=== PATIENT | female | born 1970 | race Caucasian/White ===

== ENCOUNTER 2020-06-30 10:39 | Outpatient (REF) | payer OTHER, SELFPAY ==
--- NOTE | ~2020-06-30 | MM_ITS ---
EXAMINATION: MM SCREENING DIGITAL BREAST TOMOSYNTHESIS, BILATERAL CLINICAL INFORMATION: Screening. Asymptomatic. The lifetime risk of breast cancer based on the Tyrer-Cuzick Model is 6%. COMPARISON: Mammography: 04/18/2019, 04/12/2018, 06/30/2016 TECHNIQUE: Digital breast tomosynthesis is performed in both the craniocaudal and mediolateral oblique views along with computer-aided detection (CAD). Synthesized 2D images are generated from the tomosynthesis. Additional left MLO view is provided. FINDINGS: The breasts are heterogeneously dense, which may obscure small masses (ACR BI-RADS breast composition Category c). There is a fibrocystic parenchymal pattern with scattered bilateral oval and round waxing and waning masses. There is no interval significant mass or architectural abnormality. No abnormal calcifications. The skin contours are smooth. MM/MM tomosynthesis screening BI IMPRESSION: No significant changes from prior exams. ASSESSMENT: BI-RADS 2: Benign RECOMMENDATION: Routine annual mammography screening. This patient's information was entered into a reminder system with a target due date for their next mammogram.
== END 2020-06-30 10:40 | disposition home or self-care (01) ==
LOC: HO.MAMMO 10:39
PROVIDERS: Visit Provider Internal Medicine
DX: Z12.31 Encounter for screening mammogram for malignant neoplasm of breast (principal)
CPT/HCPCS: 77063; 77067

== ENCOUNTER 2020-09-26 17:32 | Emergency (ER) | payer OTHER, SELFPAY ==
--- NOTE | 2020-09-26 | ECG_ITS ---
Test Reason : CHEST PAIN Blood Pressure : / mmHG Vent. Rate : 078 BPM Atrial Rate : 078 BPM P-R Int : 178 ms QRS Dur : 078 ms QT Int : 364 ms P-R-T Axes : 052 001 -01 degrees QTc Int : 414 ms Normal sinus rhythm Normal ECG When compared to the previous EKG of No significant changes seen Referred By: Generic ED Physician Electronically Signed By:Ren De La Cruz
--- NOTE | ~2020-09-26 | XR_ITS ---
EXAMINATION: XR CHEST CLINICAL INFORMATION: Chest pain COMPARISON: 06/16/2018 TECHNIQUE: Frontal view of the chest was obtained. FINDINGS: No significant abnormality is noted involving the heart, lungs, mediastinum, bony thorax or soft tissues. XR/XR chest 1V IMPRESSION: Unremarkable examination.
[2020-09-26 17:42] VITALS: BP 154/85; PULSE 85; RESP 18; TEMP 36.2; O2SAT 97; BMI 35.6
[2020-09-26 18:00] VITALS: BP 141/90; PULSE 75; RESP 16; TEMP 36.8; O2SAT 96
--- NOTE | 2020-09-26 18:30 | ED.CHESTPAIN ---
HPI - Chest Pain General Chief Complaint: Chest Pain Stated Complaint: Chest Pain Time Seen by Provider: 09/26/20 18:28 Source: patient Mode of arrival: ambulatory Limitations: no limitations History of Present Illness HPI narrative: 50-year-old female came in for evaluation of chest pain. Patient recently had dental infection that require dental extraction 2 days ago and being on amoxicillin, patient thinks the infection spread to her neck and down to her chest, because she feels intermittent right-sided chest and neck pain with palpitation, pain started 2 days ago, has a dull aching pain, no aggravating or relieving factors, no recent travel, no lower extremity swelling or tenderness. Patient declined any shortness of breath. Related Data Allergies Allergy/AdvReac Type Severity Reaction Status Date / Time No Known Allergies Allergy Unverified 12/01/19 14:52 Review of Systems Review of Systems: All other systems are reviewed and are negative Constitutional: Reports as per HPI and Reports no additional constitutional complaints Eyes: Reports as per HPI and Reports no additional eye complaints Reports system reviewed and no additional complaints, except as documented Cardiovascular: Reports as per HPI and Reports no additional cardiovascular complaints Respiratory: Reports as per HPI and Reports no additional respiratory complaints Gastrointestinal: Reports as per HPI and Reports no additional gastrointestinal complaints Genitourinary: Reports no additional female genitourinary complaints Musculoskeletal: Reports no additional musculoskeletal complaints Skin/Breast: Reports system reviewed and no additional complaints, except as docu Psychiatric: Reports no additional psychiatric complaints Endocrine: Reports no additional endocrine complaints Hematologic/Lymphatic: Reports no additional hematologic/lymphatic complaints Allergic/Immunologic: Reports no additional allergic/immunologic complaints Reports system reviewed and no additional complaints, except as documented and Reports Abnormal speech present [facility] Past Medical History Medical History Chronic GERD High cholesterol Surgical History H/O tooth extraction H/O: hysterectomy History of back surgery History of cholecystectomy Social History Social History Advance Directives: No Advance Directives Information Provided: Yes Patient : No (Hysterectomy) Physical Exam Vital Signs: Vital Signs: Last Vital Signs Temp 98.2 F 09/26/20 18:00 Pulse 75 09/26/20 18:00 Resp 16 09/26/20 18:00 BP 141/90 H 09/26/20 18:00 Pulse Ox 96 09/26/20 18:00 Body Mass Index 35.6 Vital signs have been reviewed as appeared to be correct. Blood pressure normal. Heart rate normal. Respiration rate normal. Temperature normal. Oxygen saturation normal. Appearance: Alert. Oriented X3. No acute distress. Head: Normal external exam. Normocephalic. Atraumatic. No Bernardo signs noted. No raccoon eyes noted. Mouth exam: Widespread daily, recently extracted left lower 2nd molar tooth, gum not tender with no fluctuation. Eyes: PERRLA. EOMI. Conjunctiva and sclera normal. Eyelids normal. ENT: TM's Normal. Pharynx normal. Uvula midline. Moist mucous membranes. No trismus noted. No drooling noted. No muffled voice noted. Neck: Normal inspection. Neck supple. FROM. No adenopathy. Thyroid Normal. No meningeal signs. No neck mass noted. CVS: Normal heart rate and rhythm. Heart sound normal. No murmurs noted. Pulses normal throughout. Respiratory: No respiratory distress. Painless inspiration. Breath sounds normal. No wheezes/rales/rhonchi noted. Chest nontender. No accessory muscle usage noted or decreased air movement noted. Abdomen: Soft and nontender. Bowel sounds normal in all 4 quadrants. No distention noted. No organomegaly noted. No visible injury noted. Back: No CVA tenderness. Full range of motion noted. Skin: Skin warm and dry. Normal skin color. Normal skin turgor. No rashes/lesions/lacerations noted. Extremities: No lower extremity edema. Extremities exhibit normal range of motion. Extremities nontender. Neuro: Oriented X 3. No motor deficit. No sensory deficit. Reflexes normal. Course Course Course Narrative: Assessment and plan. [age] year female came in with chest pain concern of spreading infection from her to tooth, patient has unremarkable EKG, troponin, labs. MDM - Chest Pain Lab Data Attestation: I reviewed the patient's lab results. Result diagrams: 09/26/20 18:43 09/26/20 18:43 Labs: Lab Results 09/26/20 09/26/20 09/26/20 Range/Units 18:43 18:43 18:43 WBC 8.3 (4.8-10.8) X10*3/uL RBC 4.92 (4.20-5.50) X10*6/uL Hgb 14.0 (12.0-16.0) g/dl Hct 42.5 (37-47) % MCV 86.4 (80-98) fL MCH 28.5 (27.0-33.0) pg MCHC 32.9 (31.0-35.0) g/dl RDW 12.9 (11.0-16.0) % Plt Count 303 (160-400) X10*3/uL MPV 10.0 (9.4-12.3) fL Immature Gran % (Auto) 0.2 (0.0-0.4) % Neut % (Auto) 62.5 (45-73) % Lymph % (Auto) 28.0 (20-40) % [place] % (Auto) 7.0 (2-11) % Eos % (Auto) 1.9 (0-4) % Baso % (Auto) 0.4 (0-2) % Lymph # (Auto) 2.3 (1.2-4.9) X10*3/uL [place] # (Auto) 0.6 (0.1-1.2) X10*3/uL Eos # (Auto) 0.2 (0.0-0.4) X10*3/uL Baso # (Auto) 0.0 (0.0-0.2) X10*3/uL Abs Immat Gran (auto) 0.02 (0.00-0.03) X10*3/uL Absolute Neuts (auto) 5.2 (2.0-8.3) X10*3/uL Absolute Nucleated RBC 0.000 (0.0-0.012) X10*3/uL Nucleated RBC % (auto) 0.0 (0.0-0.2) /100WBC Sodium 142 (135-145) mmol/L Potassium 3.9 (3.3-5.1) mmol/L Chloride 106 (96-108) mmol/L Carbon Dioxide 24 (22-29) mmol/L Anion Gap 16 (12-20) BUN 9 (9-16) mg/dL Creatinine 0.70 (0.5-1.4) mg/dL Estim Creat Clear Calc 97.1 Estimated GFR > 60 Random Glucose 95 (60-115) mg/dL Calcium 9.9 (8.4-10.2) mg/dL Total Bilirubin 0.4 (0.0-1.0) mg/dL Direct Bilirubin 0.2 (0.0-0.5) mg/dL AST 21 (5-31) U/L ALT 27 (0-31) U/L Alkaline Phosphatase 71 (39-117) U/L Troponin I High Sens < 3.5 (<3.5-17.0) ng/L B-Natriuretic Peptide 22 (<100) pg/mL Total Protein 7.4 (6.5-8.0) g/dL Albumin 4.4 (3.5-5.0) g/dL Lipase 9 (8-78) U/L Urine Color Urine Appearance Urine pH (5.0-8.0) Ur Specific [place] (1.005-1.025) Urine Protein (NEG-TRACE) MG/DL Urine Glucose (UA) (NEG) MG/DL Urine Ketones (NEG) MG/DL Urine Blood (NEG) Urine Nitrite (NEG) Ur Leukocyte Esterase (NEG) Urine RBC (0) /HPF Urine WBC (0-4) /HPF Ur Squamous Epith Cells /LPF Urine Bacteria /LPF Urine Test (NEGATIVE) 09/26/20 09/26/20 Range/Units 18:43 18:43 WBC (4.8-10.8) X10*3/uL RBC (4.20-5.50) X10*6/uL Hgb (12.0-16.0) g/dl Hct (37-47) % MCV (80-98) fL MCH (27.0-33.0) pg MCHC (31.0-35.0) g/dl RDW (11.0-16.0) % Plt Count (160-400) X10*3/uL MPV (9.4-12.3) fL Immature Gran % (Auto) (0.0-0.4) % Neut % (Auto) (45-73) % Lymph % (Auto) (20-40) % [place] % (Auto) (2-11) % Eos % (Auto) (0-4) % Baso % (Auto) (0-2) % Lymph # (Auto) (1.2-4.9) X10*3/uL [place] # (Auto) (0.1-1.2) X10*3/uL Eos # (Auto) (0.0-0.4) X10*3/uL Baso # (Auto) (0.0-0.2) X10*3/uL Abs Immat Gran (auto) (0.00-0.03) X10*3/uL Absolute Neuts (auto) (2.0-8.3) X10*3/uL Absolute Nucleated RBC (0.0-0.012) X10*3/uL Nucleated RBC % (auto) (0.0-0.2) /100WBC Sodium (135-145) mmol/L Potassium (3.3-5.1) mmol/L Chloride (96-108) mmol/L Carbon Dioxide (22-29) mmol/L Anion Gap (12-20) BUN (9-16) mg/dL Creatinine (0.5-1.4) mg/dL Estim Creat Clear Calc Estimated GFR Random Glucose (60-115) mg/dL Calcium (8.4-10.2) mg/dL Total Bilirubin (0.0-1.0) mg/dL Direct Bilirubin (0.0-0.5) mg/dL AST (5-31) U/L ALT (0-31) U/L Alkaline Phosphatase (39-117) U/L Troponin I High Sens (<3.5-17.0) ng/L B-Natriuretic Peptide (<100) pg/mL Total Protein (6.5-8.0) g/dL Albumin (3.5-5.0) g/dL Lipase (8-78) U/L Urine Color YELLOW Urine Appearance CLEAR Urine pH 6.0 (5.0-8.0) Ur Specific [place] 1.025 (1.005-1.025) Urine Protein NEG (NEG-TRACE) MG/DL Urine Glucose (UA) NEG (NEG) MG/DL Urine Ketones NEG (NEG) MG/DL Urine Blood 1+ H (NEG) Urine Nitrite NEG (NEG) Ur Leukocyte Esterase NEG (NEG) Urine RBC 0-2 (0) /HPF Urine WBC 0 (0-4) /HPF Ur Squamous Epith Cells 1+ /LPF Urine Bacteria 1+ /LPF Urine Test NEGATIVE (NEGATIVE) Imaging Data Chest x-ray: Radiologist's impression: Unremarkable chest x-ray. ECG Data ECG #1: Interpretation: Normal sinus rhythm at 78 beats per minutes, normal intervals, nonspecific ST-T changes. Discharge Plan Discharge Clinical Impression: Chest pain Qualifiers: Chest pain type: unspecified Qualified Code(s): R07.9 - Chest pain, unspecified Patient Disposition: Home, Self-Care Instructions: Chest Pain (ED) Referrals: Jakob Solomon MD [Primary Care Provider] - 2 days
[2020-09-26 18:49] LABS: MANUAL DIFF FLAG NO
[2020-09-26 18:50] LABS: Basophils Percent Auto 0.4 % (0-2); Eosinophils Absolute Auto 0.2 X10*3/uL (0.0-0.4); Eosinophils Percent Auto 1.9 % (0-4); Hematocrit 42.5 % (37-47); Imm Gran Abs Auto 0.02 X10*3/uL (0.00-0.03); Imm Gran Pct Auto 0.2 % (0.0-0.4); Lymphocytes Absolute Auto 2.3 X10*3/uL (1.2-4.9); Mean Corpuscular HGB Conc 32.9 g/dl (31.0-35.0); Mean Corpuscular Hemoglobin 28.5 pg (27.0-33.0); Mean Corpuscular Volume 86.4 fL (80-98); Monocytes Absolute Auto 0.6 X10*3/uL (0.1-1.2); Neutrophils Absolute Auto 5.2 X10*3/uL (2.0-8.3); Neutrophils Percent Auto 62.5 % (45-73); Platelet Count 303 X10*3/uL (160-400); Red Blood Count 4.92 X10*6/uL (4.20-5.50); Red Cell Distribution Width 12.9 % (11.0-16.0); White Blood Count 8.3 X10*3/uL (4.8-10.8)
[2020-09-26 18:56] LABS: Glucose Urine UA NEG (NEG); Leukocyte Esterase Urine NEG (NEG); Nitrite Urine NEG (NEG); Specific Gravity - Urine 1.025 (1.005-1.025); Urine Blood 1+ (NEG); Urine Ketones NEG (NEG); Urine Protein NEG (NEG-TRACE)
[2020-09-26 18:57] LABS: Appearance Urine CLEAR; Color Urine YELLOW
[2020-09-26 18:58] LABS: UPreg QC Valid YES; Urine Pregnancy NEGATIVE (NEGATIVE)
[2020-09-26 19:06] LABS: Bacteria Urine 1+ /LPF; RBC Urine 0-2 /HPF (0); Squamous Epithelial Cell Urine 1+ /LPF; WBC Urine 0 /HPF (0-4)
[2020-09-26 19:12] LABS: Alanine Aminotransferase 27 U/L (0-31); Albumin Level 4.4 g/dL (3.5-5.0); Alkaline Phosphatase 71 U/L (39-117); Anion Gap 16 (12-20); Aspartate Amino Transferase 21 U/L (5-31); Bilirubin Direct 0.2 mg/dL (0.0-0.5); Bilirubin Total 0.4 mg/dL (0.0-1.0); Blood Urea Nitrogen 9 mg/dL (9-16); Calcium 9.9 mg/dL (8.4-10.2); Carbon Dioxide 24 mmol/L (22-29); Chloride 106 mmol/L (96-108); Creatinine Clr Calc Pharmacy 97.1; Estimated Glomerular Filt Rate > 60; Glucose Random 95 mg/dL (60-115); Lipase 9 U/L (8-78); Potassium 3.9 mmol/L (3.3-5.1); Sodium 142 mmol/L (135-145); Total Protein 7.4 g/dL (6.5-8.0)
[2020-09-26 19:16] LABS: B Type Natriuretic Peptide 22 pg/mL (<100); Troponin-I High Sensitivity < 3.5 ng/L (<3.5-17.0)
[2020-09-26 19:30] VITALS: BP 136/82; PULSE 80; RESP 16; TEMP 36.8; O2SAT 98
== END 2020-09-26 20:06 | disposition home or self-care (01) ==
PROVIDERS: Emergency Provider Emergency Medicine; PCP Internal Medicine
DX: R07.9 Chest pain, unspecified (principal); M54.2 Cervicalgia; R06.02 Shortness of breath; Z79.899 Other long term (current) drug therapy
CPT/HCPCS: 36415; 71045; 80048; 80076; 81001; 81025; 83690; 83880; 84484; 85025; 93005; 99284

== ENCOUNTER 2022-04-30 11:19 | Outpatient (REF) | payer OTHER, SELFPAY ==
--- NOTE | ~2022-04-30 | MM_ITS ---
EXAMINATION: MM SCREENING DIGITAL BREAST TOMOSYNTHESIS, BILATERAL CLINICAL INFORMATION: Screening. Asymptomatic. The lifetime risk of breast cancer based on the Tyrer-Cuzick Model is 6%. COMPARISON: Mammography: 06/30/2020, 04/18/2019, 04/12/2018 TECHNIQUE: Digital breast tomosynthesis is performed in both the craniocaudal and mediolateral oblique views along with computer-aided detection (CAD). Synthesized 2D images are generated from the tomosynthesis. FINDINGS: The breasts are heterogeneously dense, which may obscure small masses (ACR BI-RADS breast composition Category c). Fibrocystic parenchymal pattern is again noted with scattered smooth nodularity overall decreased from prior studies. No developing density or architectural abnormality. There are no significant masses, abnormal calcifications, or other abnormalities. The axilla and skin contours are unremarkable. No significant changes. MM/MM tomosynthesis screening BI IMPRESSION: No mammographic evidence of malignancy. ASSESSMENT: BI-RADS 2: Benign RECOMMENDATION: Routine annual mammography screening. This patient's information was entered into a reminder system with a target due date for their next mammogram.
== END 2022-04-30 11:20 | disposition home or self-care (01) ==
LOC: HO.MAMMO 11:19
PROVIDERS: PCP Internal Medicine; Visit Provider Internal Medicine
DX: Z12.31 Encounter for screening mammogram for malignant neoplasm of breast (principal)
CPT/HCPCS: 77063; 77067

== ENCOUNTER 2022-07-10 15:27 | Outpatient (REF) | payer OTHER, SELFPAY ==
[2022-07-10 15:47] LABS: MANUAL DIFF FLAG NO
[2022-07-10 17:27] LABS: Basophils Absolute Auto 0.1 X10*3/uL (0.0-0.2); Basophils Percent Auto 0.7 % (0-2); Eosinophils Absolute Auto 0.5 X10*3/uL (0.0-0.4); Eosinophils Percent Auto 4.9 % (0-4); Hematocrit 43.3 % (37.0-47.0); Imm Gran Abs Auto 0.05 X10*3/uL (0.00-0.03); Imm Gran Pct Auto 0.5 % (0.0-0.4); Lymphocytes Absolute Auto 2.9 X10*3/uL (1.2-4.9); Mean Corpuscular HGB Conc 32.3 g/dl (31.0-35.0); Mean Corpuscular Volume 86.6 fL (80.0-98.0); Mean Platelet Volume 10.8 fL (9.4-12.3); Monocytes Absolute Auto 0.7 X10*3/uL (0.1-1.2); Monocytes Percent Auto 7.6 % (2-11); Neutrophils Absolute Auto 5.4 x10*3/uL (2.0-8.3); Neutrophils Percent Auto 56.3 % (45-73); Platelet Count 335 X10*3/uL (160-400); Red Cell Distribution Width 13.7 % (11.0-16.0); White Blood Count 9.6 X10*3/uL (4.8-10.8)
[2022-07-10 17:49] LABS: Alanine Aminotransferase 36 U/L (0-31); Albumin Level 4.3 g/dL (3.5-5.0); Alkaline Phosphatase 86 U/L (39-117); Anion Gap 16 (12-20); Aspartate Amino Transferase 26 U/L (5-31); Bilirubin Total 0.4 mg/dL (0.0-1.0); Blood Urea Nitrogen 10 mg/dL (9-16); Calcium 9.7 mg/dL (8.4-10.2); Carbon Dioxide 26 mmol/L (22-29); Chloride 105 mmol/L (96-108); Estimated Glomerular Filt Rate > 60; Glucose Random 93 mg/dL (60-115); Potassium 4.5 mmol/L (3.3-5.1); Sodium 142 mmol/L (135-145)
[2022-07-12 02:14] LABS: Lyme Abs Screen <0.90 index
== END 2022-07-10 15:28 | disposition home or self-care (01) ==
LOC: HO.LAB 15:27
PROVIDERS: PCP Internal Medicine; Visit Provider Internal Medicine
DX: L03.90 Cellulitis, unspecified (principal); R21 Rash and other nonspecific skin eruption
CPT/HCPCS: 36415; 80053; 85025; 86617; 86618; 87070; 87205

== ENCOUNTER 2022-11-24 08:18 | Day surgery (SDC) | payer OTHER, SELFPAY ==
[2022-11-24 09:00] VITALS: BMI 34.7
--- NOTE | 2022-11-24 09:04 | HO.ANESPROP2 ---
[facility] Past Medical History Medical History High cholesterol Chronic GERD Surgical History Surgical History Tubal ligation status H/O endoscopy H/O colonoscopy History of back surgery History of cholecystectomy H/O: hysterectomy H/O tooth extraction History of Problems with Anesthesia: No Social History Social History Advance Directives: No Advance Directives Information Provided: Yes Meds Allergies Allergy/AdvReac Type Severity Reaction Status Date / Time No Known Allergies Allergy Unverified 12/01/19 14:52 Active Medications: Current Medications Sodium Biphosphate/Sodium Phosphate (Sodium Phosphate,[place]-Dibasic 133 Ml Enema) 133 ml MS ONCE PRN PRN Reason: Poor Colonoscopy Prep Results Home Medications Medication Instructions Recorded Confirmed Last Taken Type Vitamin C 1 cap PO DAILY 11/21/22 11/21/22 Unknown History Vitamin D (with calcium) 1 tab PO DAILY 11/21/22 11/21/22 Unknown History fiber 1 tab PO DIRECTED 11/21/22 11/21/22 Unknown History multivitamin 1 tab PO DIRECTED 11/21/22 11/21/22 Unknown History omeprazole 20 mg capsule,delayed 20 mg PO DAILY 11/21/22 11/21/22 Unknown History release simvastatin 40 mg tablet 40 mg PO DAILY 11/21/22 11/21/22 Unknown History Exam Exam Date and Time: November 24, 2022 0904 Airway Mallampati Class: II TM Dist: >3cm Neck ROM: Full Denture: Upper Loose/Missing/Broken Teeth: Yes and Upper Heart: RRR Lungs: CTA Assessment and Plan Assessment Anesthesia Assessment: Anesthesia Plan Discussed and Chart Reviewed Final Anesthetic Review History of Problems with Anesthesia: No NPO: Yes ASA Class: II Final Preanesthetic Review: Meds/Allgs Chart Reviewed, Consent Obtained/Reviewed and Anes Risks/Benef Reviewed Patient Risk: Low Procedure Risk: Intermediate Anesthetic Plan Anesthetic Plan: MAC: Disposition: Standard PACU
[2022-11-24 10:56] VITALS: BP 114/73; PULSE 73; RESP 16; TEMP 36.1; O2SAT 96
--- NOTE | 2022-11-24 10:58 | PM.OP ---
Brief Operative Note Date of Service: 11/24/22 Pre-op diagnosis: Bryan's, Screening Post-op diagnosis: other (GERD, Hiatal hernia, Colon polyps) Procedure: EGD with bx, Colonoscopy to the cecum with hot snare polypectomy x 2 at 60cm and at 70cm with 1 clip placed at 60cm, and bx/removal of polyp Surgeon: Amari Schmidt Was an Towboat Captain used for this Procedure?: No Estimated blood loss (mL): 2.0 Pathology: other (A. EG Junction at 33cm B. Polyp at 60cm C. Transverse colon polyp D. Polyp at 70cm) Condition: stable Disposition: PACU
[2022-11-24 11:11] VITALS: BP 130/79; PULSE 84; RESP 16; TEMP 36.1; O2SAT 99
--- NOTE | 2022-11-24 11:35 | OP_ITS ---
DATE OF SERVICE: 11/24/2022 SURGEON: Amari Schmidt MD INDICATIONS: The patient presents for evaluation of gastroesophageal reflux with Bryan's esophagus, personal history of colon polyps, and colorectal cancer screening. Full consent has been obtained from her for both procedures, including risks of bleeding and perforation. PREOPERATIVE DIAGNOSIS: POSTOPERATIVE DIAGNOSIS: PROCEDURE PERFORMED: Esophagogastroduodenoscopy with biopsies and colonoscopy to the cecum with hot snare polypectomy and biopsy and removal of polyp. ESTIMATED BLOOD LOSS: COMPLICATIONS: ANESTHESIA: Monitored anesthesia care. ASSISTANTS: SPECIMENS: PREOPERATIVE DIAGNOSES: Gastroesophageal reflux with Bryan's esophagus, colorectal cancer screening, and personal history of colon polyps. POSTOPERATIVE DIAGNOSES: s Gastroesophageal reflux with Bryan's esophagus, colorectal cancer screening, and personal history of colon polyps, hiatal hernia, colon polyps, diverticulosis, and internal hemorrhoids. DESCRIPTION OF PROCEDURE: The patient was placed in the left lateral decubitus position. The Olympus video gastroscope was passed in the posterior oropharynx and upper esophagus under direct vision. The scope was passed slowly to the distal esophagus. The gastroesophageal junction appeared at 33 cm. There were areas of some irregularity, less than 1 cm in length, consistent with possible Bryan's mucosa. There was no evidence of any esophagitis nor any lesions. The scope entered the stomach. There was a moderate-sized hiatal hernia. The scope was advanced to the pylorus, and the duodenum was cannulated to the descending portion. The duodenum including the bulb appeared normal without mass or ulceration. The scope was withdrawn back in the stomach. The gastric antrum and body appeared normal with good peristalsis. The scope was retroflexed visualizing the proximal stomach carefully, which appeared normal, without any sign of mass or ulceration. The scope was straightened and withdrawn back to the esophagus. Multiple biopsies were obtained at the EG junction at 33 cm. Proximal to this, the esophageal mucosa appeared normal. The scope was withdrawn from the patient. She was turned around for the colonoscopy. The digital rectal exam revealed no abnormalities. The Olympus video pediatric colonoscope was entered into the rectum and advanced easily to the cecum. Once in the cecum, I did identify normal-appearing cecal pouch with appendiceal orifice and a normal-appearing ileocecal valve. The entire cecum and ileocecal valve were well visualized and appeared normal. The scope was slowly withdrawn assessing all mucosal surfaces carefully. Preparation was excellent. In the transverse colon was a flat, approximately 4 mm polyp, which was biopsied and completely removed with a cold biopsy forceps. At 60 cm and at 70 cm were approximately 10 to 15 mm polyps, which were both removed by hot snare polypectomy and recovered by suction. Both polypectomy sites appeared clean, without any sign of residual polyp nor bleeding. A single resolution clip was placed on the polypectomy site at 60 cm with good deployment and good hemostasis. I did not visualize any other polyps, colitis, nor angiodysplasia. There was a moderate amount of sigmoid diverticulosis. In the rectum, scope was retroflexed visualizing internal hemorrhoids, but no other pathology. The rectal mucosa appeared normal. The scope was straightened and withdrawn from the patient. She tolerated the procedures well and was returned to the recovery area in stable condition. IMPRESSION: 1. Colon polyps. 2. Diverticulosis. 3. Internal hemorrhoids. 4. Gastroesophageal reflux and history of Bryan esophagus. 5. Hiatal hernia. PLAN: The results of the pathology will be checked. I would recommend a repeat upper endoscopy in 3 years for further surveillance in regard to the Bryan's esophagus. I would recommend a repeat colonoscopy in 5 years for further surveillance in regard to the colon polyps found today and her previous history as well. She was advised not to use any aspirin or NSAIDs for 1 week. She will continue her daily omeprazole. She will see me otherwise on a p.r.n. basis. MD DRAKE Cueto/CHANTELLE / [phone] RUSH
== END 2022-11-24 12:10 | disposition home or self-care (01) ==
PROVIDERS: PCP Internal Medicine; Visit Provider Internal Medicine
PROC: (CPT 45380; principal; 2022-11-24 09:30)
DX: Z12.11 Encounter for screening for malignant neoplasm of colon (principal); D12.4 Benign neoplasm of descending colon; D12.3 Benign neoplasm of transverse colon; K57.30 Diverticulosis of large intestine without perforation or abscess without bleeding; K64.8 Other hemorrhoids; Z86.010 Personal history of colon polyps; Z80.0 Family history of malignant neoplasm of digestive organs; K44.9 Diaphragmatic hernia without obstruction or gangrene; K21.00 Gastro-esophageal reflux disease with esophagitis, without bleeding; K22.70 Barrett's esophagus without dysplasia; E78.5 Hyperlipidemia, unspecified; Z90.49 Acquired absence of other specified parts of digestive tract; Z90.710 Acquired absence of both cervix and uterus; Z87.891 Personal history of nicotine dependence; Z79.899 Other long term (current) drug therapy
CPT/HCPCS: 45380; 45385; 43239; 88305; J2250

== ENCOUNTER 2023-05-11 14:44 | Outpatient (REF) | payer OTHER, SELFPAY | END 2023-05-11 14:45 | disposition home or self-care (01) | LOC: HO.MAMMO 14:44 | PROVIDERS: PCP Internal Medicine; Visit Provider Internal Medicine | DX: Z12.31 Encounter for screening mammogram for malignant neoplasm of breast (principal) | CPT/HCPCS: 77063; 77067 ==

== ENCOUNTER → 2023-05-11 14:45 | Outpatient (BNV) | payer OTHER, SELFPAY | PROVIDERS: PCP Internal Medicine; Visit Provider Radiology Diagnostic Radiology | DX: Z12.31 Encounter for screening mammogram for malignant neoplasm of breast (principal) | CPT/HCPCS: 77063; 77067 ==

== ENCOUNTER 2023-10-12 09:31 | Emergency (ER) | payer OTHER, SELFPAY ==
--- NOTE | ~2023-10-12 | CT_ITS ---
EXAMINATION: CT ABDOMEN AND PELVIS WITHOUT CONTRAST CLINICAL INFORMATION: Abdominal pain. Status post left ureteric stent 2 days ago. COMPARISON: 06/24/2019 TECHNIQUE: Multidetector volumetric imaging was performed from the superior aspect of the liver through the pubic symphysis. Sagittal and coronal reformatted images were obtained on the technologist's workstation. This CT examination was performed using dose optimization techniques as appropriate, variously including the following: *Automated exposure control *Adjustment of mA and/or kV according to patient size (this includes techniques or standardized protocols for targeted exams where dose is matched to indication/reason for exam; i.e. extremities or head) *Use of iterative reconstruction technique DLP: 786 mGy-cm FINDINGS: LUNG BASES: Small hiatal hernia. LIVER, GALLBLADDER, AND BILIARY TREE: The noncontrast liver is decreased in attenuation. No biliary ductal dilatation is present. The gallbladder is surgically absent. PANCREAS: No ductal dilatation. SPLEEN: Not enlarged. ADRENAL GLANDS: No adrenal mass. KIDNEYS AND URETERS: Edema of the left kidney. Mild hydronephrosis. There is a double-J stent from the left renal pelvis to the urinary bladder. There are 2 calculi within a left lower pole calyx measuring 2 mm and 4 mm. There is left periureteric stranding. The right kidney is unremarkable. BLADDER: Few foci of nondependent gas. GASTROINTESTINAL TRACT: Small and large bowel loops are of normal caliber. Appendix is within normal limits. Diverticular disease of the colon. ABDOMINAL WALL: No significant hernia is appreciated. LYMPH NODES: No bulky lymphadenopathy. VASCULAR: Normal caliber abdominal aorta. PELVIC VISCERA: Uterus is surgically absent. Ovaries are unremarkable. OSSEOUS STRUCTURES: No destructive bone lesions. CT/CT abdomen pelvis wo IV con IMPRESSION: Edema of the left kidney with mild left hydronephrosis. A double-J stent is in place with left periureteric stranding. 2 mm and 4 mm nonobstructing calculi in the left lower pole calyx. No definite calculi seen along the course of the stent.
[2023-10-12 10:13] VITALS: BP 138/93; PULSE 85; RESP 18; TEMP 37.1; O2SAT 96; BMI 32.9
[2023-10-12 10:33] LABS: MANUAL DIFF FLAG NO
[2023-10-12 10:35] LABS: Basophils Percent Auto 0.4 % (0-2); Eosinophils Absolute Auto 0.3 X10*3/uL (0.0-0.4); Eosinophils Percent Auto 3.4 % (0-4); Hematocrit 38.8 % (37.0-47.0); Hemoglobin 13.2 g/dl (12.0-16.0); Imm Gran Abs Auto 0.04 X10*3/uL (0.00-0.03); Imm Gran Pct Auto 0.4 % (0.0-0.4); Lymphocytes Absolute Auto 1.3 X10*3/uL (1.2-4.9); Lymphocytes Percent Auto 13.4 % (20-40); Mean Corpuscular Hemoglobin 29.3 pg (27.0-33.0); Mean Corpuscular Volume 86.2 fL (80.0-98.0); Mean Platelet Volume 10.1 fL (9.4-12.3); Monocytes Absolute Auto 0.6 X10*3/uL (0.1-1.2); Monocytes Percent Auto 6.1 % (2-11); Neutrophils Absolute Auto 7.3 x10*3/uL (2.0-8.3); Neutrophils Percent Auto 76.3 % (45-73); Platelet Count 242 X10*3/uL (160-400); Red Cell Distribution Width 12.8 % (11.0-16.0); White Blood Count 9.5 X10*3/uL (4.8-10.8)
[2023-10-12 10:52] LABS: Anion Gap 12 (12-20); Blood Urea Nitrogen 10 mg/dL (9-16); Calcium 9.8 mg/dL (8.4-10.2); Carbon Dioxide 26 mmol/L (22-29); Chloride 109 mmol/L (96-108); Creatinine Clr Calc Pharmacy 88.6; Estimated Glomerular Filt Rate > 60; Glucose Random 118 mg/dL (60-115); Potassium 3.5 mmol/L (3.3-5.1); Sodium 143 mmol/L (135-145)
--- NOTE | 2023-10-12 11:45 | PC.NURSE ---
patient arrives via external triage, states this weekend she was at her sons wedding and yesterday she was in her hotel room and had to call 911 due to severe back and abdominal pain, states she went to [facility] yesterday due to having a very large kidney stone. patient states they put in a stent and told her the stone was too big to pass. patient was sent home yesterday and woke up this morning in 10/10 abdominal pain. patient states there is blood in her urine and the pain is unbearable. PIV placed by this RN. blood work obtained in triage, patient provided with urine cup, educated on need for urine sample. patient states she went recently but will provide one when she can.
--- NOTE | 2023-10-12 12:01 | ED_ITS ---
HPI - Female Genitourinary General Chief complaint: Urogenital-Female Stated complaint: Kidney Stone Time Seen by Provider: 10/12/23 11:59 Source: patient and family ( spouse) Mode of arrival: ambulatory Limitations: no limitations History of Present Illness ED Provider: DR. Villagran HPI Narrative: 53-year-old female came in for evaluation of left abdominal/left flank severe pain. Patient was at her son's wedding out of town 2 days ago when she started to have severe left flank pain patient was transported to the hospital was diagnosed with 1 cm left ureteric stone require hospitalization and stent placement patient was discharged home on antibiotic and was told to take Tylenol for pain if needed came back today for severe left flank pain associated with nausea but no vomiting, pain is mainly in the left flank area radiates down to the left groin area, also noticed hematuria. Patient has been taking the prescribed antibiotic as prescribed. Had normal bowel movement was passing flatus this morning, still able to urinate with hematuria and discomfort while urinating. Abdominal surgery is significant for remote partial hysterectomy. Related Data Home Medications ?Medication ?Instructions ?Recorded ?Confirmed Vitamin C 1 cap PO DAILY 11/21/22 11/21/22 Vitamin D (with calcium) 1 tab PO DAILY 11/21/22 11/21/22 fiber 1 tab PO DIRECTED 11/21/22 11/21/22 multivitamin 1 tab PO DIRECTED 11/21/22 11/21/22 omeprazole 20 mg capsule,delayed 20 mg PO DAILY 11/21/22 11/21/22 release simvastatin 40 mg tablet 40 mg PO DAILY 11/21/22 11/21/22 Previous Rx's ?Medication ?Instructions ?Recorded oxycodone 5 mg tablet 5 mg PO Q8H PRN pain #10 tabs 10/12/23 Allergies Allergy/AdvReac Type Severity Reaction Status Date / Time No Known Allergies Allergy Verified 10/12/23 10:14 Review of Systems 2 Review of Systems: all other systems are reviewed and are negative Constitutional: Reports as per HPI and Reports no additional constitutional complaints Eyes: Reports as per HPI and Reports no additional eye complaints Reports system reviewed and no additional complaints, except as documented Cardiovascular: Reports as per HPI and Reports no additional cardiovascular complaints Respiratory: Reports as per HPI and Reports no additional respiratory complaints Gastrointestinal: Reports as per HPI and Reports no additional gastrointestinal complaints Genitourinary: Reports no additional female genitourinary complaints Musculoskeletal: Reports no additional musculoskeletal complaints Skin/Breast: Reports system reviewed and no additional complaints, except as docu Psychiatric: Reports no additional psychiatric complaints Endocrine: Reports no additional endocrine complaints Hematologic/Lymphatic: Reports no additional hematologic/lymphatic complaints Allergic/Immunologic: Reports no additional allergic/immunologic complaints Reports system reviewed and no additional complaints, except as documented and Reports Abnormal speech present [facility] Past Medical History Medical History High cholesterol Chronic GERD Surgical History Tubal ligation status H/O endoscopy H/O colonoscopy History of back surgery History of cholecystectomy H/O: hysterectomy H/O tooth extraction Social History Social History Are you a primary vision care associate to a significant other at home: No Patient Tobacco Use Status: Former Tobacco user Smoked in Last 30 Days: No Use of substances other than those prescribed or required for medical reasons: No Advance Directives: No Advance Directives Information Provided: Yes Patient : No Physical Exam 2 Vital Signs: Vital Signs: Last Vital Signs Temp 98.8 F 10/12/23 10:13 Pulse 85 10/12/23 10:13 Resp 19 10/12/23 12:34 BP 138/93 H 10/12/23 10:13 Pulse Ox 96 10/12/23 10:13 O2 Del Method Room Air 10/12/23 10:13 BMI result Body Mass Index 32.9 Vital signs have been reviewed and appear to be correct. Blood pressure elevated. Heart rate normal. Respiratory rate normal. Temperature normal. Oxygen saturation normal. Appearance: Alert. Oriented X3. No acute distress. Head: Normal external exam. Normocephalic. Atraumatic. No Bernardo signs noted. No raccoon eyes noted Eyes: PERRLA. EOMI. Conjunctiva and sclera normal. Eyelids normal. ENT: TM's Normal. Pharynx normal. Uvula midline. Moist mucous membranes. No trismus noted. No drooling noted. No muffled voice noted. Neck: Normal inspection. Neck supple. FROM. No adenopathy. Thyroid Normal. No meningeal signs. No neck mass noted. CVS: Normal heart rate and rhythm. Heart sound normal. No murmurs noted. Pulses normal throughout. Respiratory: No respiratory distress. Painless inspiration. Breath sounds normal. No wheezes/rales/rhonchi noted. Chest nontender. No accessory muscle usage noted or decreased air movement noted. Abdomen: Soft and nontender. Bowel sounds normal in all 4 quadrants. No distention noted. No organomegaly noted. No visible injury noted. Back: L CVA tenderness. Full range of motion noted. Skin: Skin warm and dry. Normal skin color. Normal skin turgor. No rashes/lesions/lacerations noted. Extremities: No lower extremity edema. Extremities exhibit normal range of motion. Extremities nontender. Neuro: Oriented X 3. Cranial nerve exam: II-XII are grossly intact No motor deficit. No sensory deficit. Reflexes normal. Course Reevaluation(s) Reevaluation #1: 53-year-old female recently diagnosed with left ureteric stone a different hospital had ureteric stent placed patient did not have a strong pain medication came in with excruciating pain that was controlled with morphine in the ED, CT is unremarkable, will continue with the current plan adding oxycodone to control patient's pain, will send the patient to Dr. Peoples for follow-up. the case was discussed with him over tiger connect Time: 15:03 Medications Administered Discontinued Medications Generic Name Dose Route Start Last Admin Trade Name Freq PRN Reason Stop Dose Admin Sodium Chloride 1,000 mls @ 999 mls/hr 10/12/23 12:18 10/12/23 14:45 Ns IV 10/12/23 13:18 Infused .Q1H1M ONE Infusion Ketorolac Tromethamine 30 mg 10/12/23 12:18 10/12/23 12:33 Ketorolac Tromethamine 30 Mg/Ml Vial IVPUSH 10/12/23 12:19 30 mg ONCE ONE Administration Morphine Sulfate 2 mg 10/12/23 12:18 10/12/23 12:34 Morphine Sulfate 2 Mg/Ml Cartridge IVPUSH 10/12/23 12:19 2 mg ONCE ONE Administration Protocol Ondansetron HCl 4 mg 10/12/23 12:18 10/12/23 12:29 Ondansetron Hcl 4 Mg/2 Ml Vial IVPUSH 10/12/23 12:19 4 mg ONCE ONE Administration Medical Decision Making Differential Diagnosis Differential Diagnoses: The differential diagnosis associated with the presentation includes ( UTI, pyelonephritis, obstructing kidney stone, complicated ureteric stent.) Admission/Observation Consideration of admission/observation: Escalation of care including admission/observation considered Consult Healthcare Provider Management of the patient was discussed with: Cloth Mercerizing Supervisor ( Dr. Peoples) Lab Data MDM Lab Attestation statement: I reviewed the patient's lab results. 10/12/23 10:25 10/12/23 10:25 Labs: Lab Results 10/12/23 10/12/23 Range/Units 10:25 12:37 WBC 9.5 (4.8-10.8) X10*3/uL RBC 4.50 (4.20-5.50) X10*6/uL Hgb 13.2 (12.0-16.0) g/dl Hct 38.8 (37.0-47.0) % MCV 86.2 (80.0-98.0) fL MCH 29.3 (27.0-33.0) pg MCHC 34.0 (31.0-35.0) g/dl RDW 12.8 (11.0-16.0) % Plt Count 242 D (160-400) X10*3/uL MPV 10.1 (9.4-12.3) fL Immature Gran % (Auto) 0.4 (0.0-0.4) % Neut % (Auto) 76.3 H (45-73) % Lymph % (Auto) 13.4 L (20-40) % Stanley % (Auto) 6.1 (2-11) % Eos % (Auto) 3.4 (0-4) % Baso % (Auto) 0.4 (0-2) % Lymph # (Auto) 1.3 (1.2-4.9) X10*3/uL Stanley # (Auto) 0.6 (0.1-1.2) X10*3/uL Eos # (Auto) 0.3 (0.0-0.4) X10*3/uL Baso # (Auto) 0.0 (0.0-0.2) X10*3/uL Abs Immat Gran (auto) 0.04 H (0.00-0.03) X10*3/uL Absolute Neuts (auto) 7.3 (2.0-8.3) x10*3/uL Absolute Nucleated RBC 0.000 (0.0-0.012) X10*3/uL Nucleated RBC % (auto) 0.0 (0.0-0.2) /100WBC Sodium 143 (135-145) mmol/L Potassium 3.5 (3.3-5.1) mmol/L Chloride 109 H (96-108) mmol/L Carbon Dioxide 26 (22-29) mmol/L Anion Gap 12 (12-20) BUN 10 (9-16) mg/dL Creatinine 0.71 (0.5-1.4) mg/dL Estim Creat Clear Calc 88.6 Estimated GFR > 60 Random Glucose 118 H (60-115) mg/dL Calcium 9.8 (8.4-10.2) mg/dL Urine Color Dark Yellow Urine Appearance Clear Urine pH 7.5 (5.0-9.0) Ur Specific [place] 1.010 (1.005-1.025) Urine Protein 30 (1+) H (Neg-Trace) mg/dL Urine Glucose (UA) Negative (Negative) mg/dL Urine Ketones Negative (Negative) mg/dL Urine Blood Large (3+) H (Negative) Urine Nitrite Positive H (Negative) Ur Leukocyte Esterase Moderate (2+) H (Negative) Urine RBC >20 H (0-2) /HPF Urine WBC 6-10 H (0-5) /HPF Ur Squamous Epith Cells 3-5 (0-2) /HPF Urine Bacteria Trace (None Seen) Hyaline Casts 0-2 (0-2) /LPF Independent Interpretation I performed an independent interpretation of an: CT Scan ( abdomen pelvis:Edema of the left kidney with mild left hydronephrosis. A double-J stent is in place with left periureteric stranding. 2 mm and 4 mm nonobstructing calculi in the left lower pole calyx. No definite calculi seen along the course of the stent.) Radiology Impression Discussion of test interpretation with radiology: I have reviewed the radiologist's reading. Discharge Plan Discharge Clinical Impression: Calculi, ureter, Renal colic Patient Disposition: Home, Self-Care Instructions: Renal Colic (ED) Prescriptions: New oxycodone 5 mg tablet 5 mg PO Q8H PRN (Reason: pain) Qty: 10 0RF Rx Instructions: Partial Fill upon patient request. No Action simvastatin 40 mg tablet 40 mg PO DAILY omeprazole 20 mg capsule,delayed release(DR/EC) 20 mg PO DAILY Vitamin C 500 mg 1 cap PO DAILY Vitamin D (with calcium) 1,000 units 1 tab PO DAILY fiber 600 mg 1 tab PO DIRECTED multivitamin 1 tab PO DIRECTED Referrals: Harris Peoples MD [Physician] - Jakob Solomon MD [Primary Care Provider] - Print Language: Yakut
--- NOTE | 2023-10-12 12:03 | PC.NURSE ---
patient ambulatory with steady gait to provide urine sample
[2023-10-12] MEDS: ondansetron HCL 4 MG/2 ML VIAL IVPUSH (12:29)
[2023-10-12] MEDS: Ketorolac Tromethamine 30 MG/ML VIAL IVPUSH (12:33)
[2023-10-12 12:34] VITALS: RESP 19
[2023-10-12] MEDS: Morphine Sulfate 2 MG/ML CARTRIDGE IVPUSH (12:34)
[2023-10-12] MEDS: 0.9 % Sodium Chloride 1,000 ML 999 ML IV (12:34)
[2023-10-12 12:53] LABS: Appearance Urine Clear; Color Urine Dark Yellow; Glucose Urine UA Negative (Negative); Leukocyte Esterase Urine Moderate (2+) (Negative); Nitrite Urine Positive (Negative); PH 7.5 (5.0-9.0); UMIC TRIGGER UACC YES; Urine Blood Large (3+) (Negative); Urine Ketones Negative (Negative); Urine Protein 30 (1+) mg/dL (Neg-Trace)
--- NOTE | 2023-10-12 13:00 | PC.NURSE ---
patient ambulatory with steady gait to CT scan at this time
[2023-10-12 13:01] LABS: Bacteria Urine Trace (None Seen); Hyaline Casts Urine 0-2 /LPF (0-2); RBC Urine >20 /HPF (0-2); UACC Culture Trigger YES
[2023-10-12 15:55] VITALS: BP 140/63; PULSE 85; RESP 19; TEMP 36.9; O2SAT 98
== END 2023-10-12 15:56 | disposition home or self-care (01) ==
PROVIDERS: Emergency Provider Emergency Medicine; PCP Internal Medicine
DX: N20.1 Calculus of ureter (principal); N23 Unspecified renal colic; R11.0 Nausea; Z79.899 Other long term (current) drug therapy
CPT/HCPCS: 36415; 74176; 80048; 81001; 85025; 87086; 96361; 96374; 96375; 99284; 99285; J1885; J2270; J2405

== ENCOUNTER 2023-10-14 14:53 | Outpatient (AMB) | payer OTHER, SELFPAY ==
--- NOTE | 2023-10-14 15:26 | MHC.OFFVIS ---
Intake Visit Reasons: ER follow up/stent Intake Note: Patient is Present for [place] [facility] [place] Medication:None Antibiotic Allergies: None Blood Thinners:None Allergies No Known Allergies Allergy (Verified 10/14/23 15:28) Medication List - Last Reconciled 10/14/23 by Delmis Mansfield MD [fiber 1 tab PO DIRECTED] [multivitamin 1 tab PO DIRECTED] omeprazole 20 mg PO DAILY oxycodone 5 mg PO Q8H PRN pyridoxine (vitamin B6) 100 mg PO DAILY 90 days simvastatin 40 mg PO DAILY tamsulosin 0.4 mg PO DAILY [Vitamin C 1 cap PO DAILY] [Vitamin D (with calcium) 1 tab PO DAILY] HPI Comments Details: 10/14/23--Marni is here for evaluation due to kidney stones. The patient was at her son's wedding out of town several days ago when she started to have severe left flank pain patient she was transported to the nearby hospital was diagnosed with an obstructing left ureteric stone requiring hospitalization and stent placement. [place] [facility] [place]: CTAP --Edema of the left kidney. Mild hydronephrosis. There is a double-J stent from the left renal pelvis to the urinary bladder. There are 2 calculi within a left lower pole calyx measuring 2 mm and 4 mm. There is left periureteric stranding. The right kidney is unremarkable. Urine culture sent on 10/12/2023--no growth I have discussed ureteroscopy for further evaluation. PFSH Medical History High cholesterol Chronic GERD Surgical History Tubal ligation status H/O endoscopy H/O colonoscopy History of back surgery History of cholecystectomy H/O: hysterectomy H/O tooth extraction Social History Are you a primary resident care director to a significant other at home: No Patient Tobacco Use Status: Former Tobacco user Review of Systems Const All systems reviewed & are unremarkable except as noted in HPI and below Reports no additional complaints Eyes Reports no additional complaints ENT Reports no additional complaints Card Reports no additional complaints Resp Reports no additional complaints GI Reports no additional complaints Reports as per HPI Musc Reports no additional complaints Skin/Breast Reports system reviewed and no additional complaints, except as documented Neuro Reports no additional complaints Psych Reports no additional complaints Endo Reports no additional complaints Dontae/Lymph Reports no additional complaints Aller/Immun Reports no additional complaints Physical Exam Const General: cooperative, healthy appearing and no acute distress Orientation/consciousness: patient oriented x3 HEENT Head: Yes normal to inspection, Yes normocephalic and Yes atraumatic Eyes Conjunctivae: conjunctivae normal Neck Neck: Yes normal visual inspection and Yes trachea midline Chest Chest palpation & inspection: normal inspection of the chest Resp Effort & Inspection: normal respiratory effort Cardio Rate: regular rate GI Inspection: Yes normal to inspection Skin General skin exam: no rashes or lesions noted Neuro General: patient oriented x3 Extrem General: No edema Psych Appearance: grossly normal Results AMB Urinalysis, Automated UA Leukoctes 15 Marlyn/uL Last Edit by Amparo Sousa [facility] on 10/14/23 15:39 UA Nitrite Negative Last Edit by Amparo Sousa [facility] on 10/14/23 15:39 UA Urobilinogen 0.2 mg/dL Last Edit by Amparo Sousa [facility] on 10/14/23 15:39 UA Protein 15 mg/dL Last Edit by Amparo Sousa [facility] on 10/14/23 15:39 UA pH 6.5 Last Edit by Amparo Sousa [facility] on 10/14/23 15:39 UA Blood 200 Foster/uL Last Edit by Amparo Sousa [facility] on 10/14/23 15:39 UA Specific [place] 1.005 Last Edit by Amparo Sousa [facility] on 10/14/23 15:39 UA Ketone Negative Last Edit by Amparo Sousa [facility] on 10/14/23 15:39 UA Bilirubin 0 mg/dL Last Edit by Amparo Sousa [facility] on 10/14/23 15:39 UA Glucose 0 mg/dL Last Edit by Amparo Sousa [facility] on 10/14/23 15:39 Results Reviewed Results Reviewed: Laboratory Last Values Urine pH (Auto) 6.5 10/14/23 15:38 Specific [place] (Auto) 1.005 10/14/23 15:38 Urine Protein (Auto) 15 mg/dL 10/14/23 15:38 Glucose (UA)(Auto) 0 mg/dL 10/14/23 15:38 Urine Ketones (Auto) Negative 10/14/23 15:38 Urine Blood (Auto) 200 Foster/uL 10/14/23 15:38 Urine Nitrite (Auto) Negative 10/14/23 15:38 Urine Bilirubin (Auto) 0 mg/dL 10/14/23 15:38 Urine Urobilinogen (Auto) 0.2 mg/dL 10/14/23 15:38 Leukocyte Esterase (Auto) 15 Marlyn/uL 10/14/23 15:38 Date of Service: 10/12/23 EXAMINATION: CT ABDOMEN AND PELVIS WITHOUT CONTRAST CLINICAL INFORMATION: Abdominal pain. Status post left ureteric stent 2 days ago. COMPARISON: 06/24/2019 TECHNIQUE: Multidetector volumetric imaging was performed from the superior aspect of the liver through the pubic symphysis. Sagittal and coronal reformatted images were obtained on the technologist's workstation. This CT examination was performed using dose optimization techniques as appropriate, variously including the following: *Automated exposure control *Adjustment of mA and/or kV according to patient size (this includes techniques or standardized protocols for targeted exams where dose is matched to indication/reason for exam; i.e. extremities or head) *Use of iterative reconstruction technique DLP: 786 mGy-cm FINDINGS: LUNG BASES: Small hiatal hernia. LIVER, GALLBLADDER, AND BILIARY TREE: The noncontrast liver is decreased in attenuation. No biliary ductal dilatation is present. The gallbladder is surgically absent. PANCREAS: No ductal dilatation. SPLEEN: Not enlarged. ADRENAL GLANDS: No adrenal mass. KIDNEYS AND URETERS: Edema of the left kidney. Mild hydronephrosis. There is a double-J stent from the left renal pelvis to the urinary bladder. There are 2 calculi within a left lower pole calyx measuring 2 mm and 4 mm. There is left periureteric stranding. The right kidney is unremarkable. BLADDER: Few foci of nondependent gas. GASTROINTESTINAL TRACT: Small and large bowel loops are of normal caliber. Appendix is within normal limits. Diverticular disease of the colon. ABDOMINAL WALL: No significant hernia is appreciated. LYMPH NODES: No bulky lymphadenopathy. VASCULAR: Normal caliber abdominal aorta. PELVIC VISCERA: Uterus is surgically absent. Ovaries are unremarkable. OSSEOUS STRUCTURES: No destructive bone lesions. IMPRESSION: Edema of the left kidney with mild left hydronephrosis. A double-J stent is in place with left periureteric stranding. 2 mm and 4 mm nonobstructing calculi in the left lower pole calyx. No definite calculi seen along the course of the stent. Assessment & Plan Assessment & Plan (1) Kidney stone: Code(s): N20.0 - Calculus of kidney Category: Medical (2) Ureteral stent present: Code(s): Z96.0 - Presence of urogenital implants Category: Medical (3) Hydronephrosis: Code(s): N13.30 - Unspecified hydronephrosis Category: Medical Plan Cystoscopy left ureteroscopy possible laser lithotripsy stent exchange. Vitamin B6 100 mg daily. 24 hour urine collection to be done. Orders: Orders AMB Urinalysis Automated 10/14/23 Z13.9 - Encounter for screening, unspecified Medications: New pyridoxine (vitamin B6) 100 mg PO DAILY 90 tabs 1RF 90 days Patient Instructions: The patient had an opportunity to ask questions regarding treatment plan. The patient expressed understanding and agreement with the above treatment plan. The patient is aware they should contact our office by phone for worsening of their current condition or the appearance of new symptoms. Compliance is encouraged with any medications and followup testing that is ordered. It is a privilege to be allowed the opportunity to participate in the urologic care of your patient. If you have any questions or concerns regarding treatment for the above conditions please do not hesitate to contact me. The office telephone contact is [phone]. This note is constructed in part using voice recognition software. While every effort has been made to ensure accuracy scout leaser errors may have been included. Yours sincerely, Delmis Mansfield MD Coding Level of Care Code New Pt Level 4 (76258) Diagnoses Kidney stone N20.0 Ureteral stent present Z96.0 Hydronephrosis N13.30
== END 2023-10-14 15:59 | disposition home or self-care (01) ==
PROVIDERS: PCP Internal Medicine; Visit Provider Urology
DX: N20.0 Calculus of kidney (principal); Z96.0 Presence of urogenital implants; N13.30 Unspecified hydronephrosis
CPT/HCPCS: 99204

== ENCOUNTER → 2023-10-14 14:53 | Outpatient (BNVA) | payer OTHER, SELFPAY | PROVIDERS: PCP Internal Medicine; Visit Provider Urology | DX: N13.2 Hydronephrosis with renal and ureteral calculous obstruction (principal); Z96.0 Presence of urogenital implants | CPT/HCPCS: 81003 ==

== ENCOUNTER 2023-10-20 09:12 | Day surgery (SDC) | payer OTHER, SELFPAY ==
--- NOTE | 2023-10-16 14:36 | HO.ANESPROP2 ---
Documented by User: Lindsey Salazar NP 10/16/23 14:37 HPI - Anesthesia Eval Consult details Narrative: 53yo F for Left Cystoscopy, Ureteroroscopy, Retro, Laser with stent exchange PMFSH Active Problems Active Problems: All Active Problems Hydronephrosis (Acute) Ureteral stent present (Acute) Kidney stone (Acute) Past Medical History Medical History (Updated 10/15/23 @ 10:13 by Delmis Mansfield MD) High cholesterol Chronic GERD Surgical History Surgical History (Updated 10/20/23 @ 09:51 by Rea Castillo RN) H/O cystoscopy Tubal ligation status H/O endoscopy H/O colonoscopy History of back surgery History of cholecystectomy H/O: hysterectomy H/O tooth extraction History of Problems with Anesthesia: No Social History Social History Are you a primary veterinarian laboratory animal care to a significant other at home: No Patient Tobacco Use Status: Former Tobacco user Tobacco use type: Cigarette Years Smoked: 25 Smoked in Last 30 Days: No Use of substances other than those prescribed or required for medical reasons: Yes Substance Use Frequency: Daily Are you DNR?: No Advance Directives: No Advance Directives Information Provided: Yes Meds Allergies Allergy/AdvReac Type Severity Reaction Status Date / Time No Known Allergies Allergy Verified 10/20/23 09:52 Home Medications ?Medication ?Instructions ?Recorded ?Confirmed ?Last Taken ?Type Vitamin C 1 cap PO DAILY 11/21/22 10/20/23 Unknown History Vitamin D (with calcium) 1 tab PO DAILY 11/21/22 10/14/23 Unknown History fiber 1 tab PO DIRECTED 11/21/22 10/20/23 Unknown History multivitamin 1 tab PO DIRECTED 11/21/22 10/20/23 Unknown History omeprazole 20 mg capsule,delayed 20 mg PO DAILY 11/21/22 10/20/23 10/20/23 History release simvastatin 40 mg tablet 40 mg PO DAILY 11/21/22 10/20/23 Unknown History iron 1 tab PO DAILY 10/20/23 10/20/23 10/13/23 History Exam Pertinent Lab Results Pertinent Lab Results: Laboratory Tests 10/12/23 10:25 WBC 9.5 Hgb 13.2 Hct 38.8 Plt Count 242 D Sodium 143 Potassium 3.5 Chloride 109 H Carbon Dioxide 26 BUN 10 Creatinine 0.71 Assessment and Plan Assessment Anesthesia Assessment: Chart Reviewed Final Anesthetic Review History of Problems with Anesthesia: No Documented by User: Mario Vargas MD 10/20/23 13:11 [facility] Past Medical History Medical History (Updated 10/15/23 @ 10:13 by Delmis Mansfield MD) High cholesterol Chronic GERD Family History Family history of problems with anesthesia: No Surgical History Surgical History (Updated 10/20/23 @ 09:51 by Rea Castillo RN) H/O cystoscopy Tubal ligation status H/O endoscopy H/O colonoscopy History of back surgery History of cholecystectomy H/O: hysterectomy H/O tooth extraction Social History Social History Are you a primary veterinarian laboratory animal care to a significant other at home: No Patient Tobacco Use Status: Former Tobacco user Tobacco use type: Cigarette Years Smoked: 25 Smoked in Last 30 Days: No Use of substances other than those prescribed or required for medical reasons: Yes Substance Use Frequency: Daily Are you DNR?: No Advance Directives: No Advance Directives Information Provided: Yes Meds Allergies Allergy/AdvReac Type Severity Reaction Status Date / Time No Known Allergies Allergy Verified 10/20/23 09:52 Home Medications ?Medication ?Instructions ?Recorded ?Confirmed ?Last Taken ?Type Vitamin C 1 cap PO DAILY 11/21/22 10/20/23 Unknown History Vitamin D (with calcium) 1 tab PO DAILY 11/21/22 10/14/23 Unknown History fiber 1 tab PO DIRECTED 11/21/22 10/20/23 Unknown History multivitamin 1 tab PO DIRECTED 11/21/22 10/20/23 Unknown History omeprazole 20 mg capsule,delayed 20 mg PO DAILY 11/21/22 10/20/23 10/20/23 History release simvastatin 40 mg tablet 40 mg PO DAILY 11/21/22 10/20/23 Unknown History iron 1 tab PO DAILY 10/20/23 10/20/23 10/13/23 History Exam Airway Mallampati Class: II TM Dist: >3cm Neck ROM: Full Denture: Upper Assessment and Plan Assessment Anesthesia Assessment: Anesthesia Plan Discussed Final Anesthetic Review Family History of Problems with Anesthesia: No NPO: Yes ASA Class: II and III Final Preanesthetic Review: No Changes in Pt Med Stat, Meds/Allgs Chart Reviewed, Consent Obtained/Reviewed and Anes Risks/Benef Reviewed Patient Risk: Intermediate Procedure Risk: Low Anesthetic Plan Anesthetic Plan: GA Disposition: Standard PACU
--- NOTE | ~2023-10-20 | FL_ITS ---
EXAMINATION: XR FLUOROSCOPY WITH IMAGES CLINICAL INFORMATION: Left retrograde ureteroscopy/cystoscopy for left ureteral calculus. COMPARISON: CT abdomen and pelvis 10/12/2023. TECHNIQUE: Fluoroscopy provided to: Dr. Strange Fluoroscopy time: 39.7 seconds Total dose: 16.86 mGy Images: 4 FINDINGS: Sequential images of the left pelvis and left abdomen show a cystoscope in place, and cannulation of the left ureter with wire, and subsequent ureteral stent appointment. FL/FL guidance in OR IMPRESSION: Fluoroscopic guidance. Please refer to the full operative report for details. Electronically signed by: Gonzalez Dahl MD 12/18/2023 02:38 PM EDT
[2023-10-20 09:54] VITALS: BMI 33.3
[2023-10-20 10:06] VITALS: BP 124/77; PULSE 85; RESP 16; TEMP 37.1; O2SAT 96
[2023-10-20] MEDS: Lactated Ringers 1,000 ML 100 ML IVCONT (12:38)
--- NOTE | 2023-10-20 13:07 | P.HPSUR_ITS ---
Pre-Procedural Eval Section A - 24 Hr Update-Section A only Date of Service: 10/20/23 The patient is an INPATIENT: No The patient has been examined within 24 hours of the surgical procedure. The History & Physical has been completed within 30 days and I have reviewed it.: Yes Section B - Complete if H&P > 30 days Chief Complaint: Unspecified hydronephrosis, kidney stones Allergies: Allergies Allergy/AdvReac Type Severity Reaction Status Date / Time No Known Allergies Allergy Verified 10/20/23 09:52 Plan Diagnosis/Plan: Unchanged I have reviewed the history and physical and performed a pertinent physical examination on my patient. No changes have occurred unless specified. Plan for Cystoscopy, left ureteroscopy, possible laser lithotripsy, ureteral stent exchange. Risks discussed included but not limited to, possible need to repeat procedure if stone is not completely fragmented, Irritative voiding sympt oms, bladder spasms, urgency, blood in urine. Time Spent With Patient Time: Total time managing care of this patient today ____ minutes.
[2023-10-20 14:46] VITALS: BP 144/89; PULSE 78; RESP 15; TEMP 37; O2SAT 96
[2023-10-20 14:51] VITALS: BP 130/82; PULSE 72; RESP 16; O2SAT 94
--- NOTE | 2023-10-20 14:52 | P.OP_ITS ---
Operative Note Operative Note Date of Service: 10/20/23 Narrative: PreOperative Diagnosis:?? Left renal calculi, left hydronephrosis secondary to left ureteral stone status post ureteral stent Post Operative Diagnosis:?? Left renal calculi, left hydronephrosis secondary to left ureteral stone status post ureteral stent Procedure: Cystoscopy, Left ureteroscopy, laser lithotripsy stent exchange, size 7 Macanese by 24 cm Surgeon:?Dr Delmis Mansfield Anesthesia:? General Indications for procedure: Marni is status post left ureteral stent which was placed due to left hydronephrosis secondary to obstructing ureteral stone. Findings: No ureteral stone visualized renal calculus left lower pole calyx Procedure: After informed consent was verified the patient was brought to the operating placed on the OR table in supine position.? General Anesthesia was administered per protocol.? The patient was placed in lithotomy position, prepped and draped in the usual sterile fashion.? Safety pause time-out and side of surgery conf irmed.? Antibiotics confirmed. A 22 Macanese cystoscope was inserted transurethrally. The bladder was visualized.? The trigone was dependent due to cystocele. The left ureteral stent was curled in the bladder. The distal end of the ureteral stent was grasped with the flexible grasping forceps. The stent was pulled retrograde through the urethra. A guidewire was passed through the stent. The cystoscope was removed, leaving the guidewire in place. The guidewire was used as the safety and was attached to the draping. The semi rigid ureteroscope was passed transurethrally to the renal pelvis, the stone was not visualized in the ureter. The flexible disposable ureteroscope was then passed over the guidewire a stone was seen in the lower pole of the left kidney. The 220 laser fiber was utilized. The stone was treated with laser lithotripsy but due to the acute angle required and due to the location in the calyx this limited the laser treatment and there was not adequate fragmentation of the stone. The ureteroscope was removed. The cystoscope was passed over the safety guidewire. A? 7 Macanese by 24 cm stent was placed into the ureter and renal pelvis under a combination of fluoroscopy and direct visualization. The bladder was emptied.? The rigid cystoscope was removed. ? The patient tolerated the procedure well and was brought to the recovery room in stable condition. Complications: None Drains: Ureteral stent as dictated above
[2023-10-20 14:56] VITALS: BP 124/75; PULSE 73; RESP 16; O2SAT 94
[2023-10-20 15:01] VITALS: BP 120/74; PULSE 86; RESP 17; O2SAT 100
[2023-10-20 15:16] VITALS: BP 144/87; PULSE 80; RESP 15; TEMP 37; O2SAT 97
[2023-10-20] MEDS: Phenazopyridine HCL 200 MG TABLET PO (15:45)
== END 2023-10-20 15:40 | disposition home or self-care (01) ==
PROVIDERS: PCP Internal Medicine; Visit Provider Urology
PROC: (CPT 52356; principal; 2023-10-20 11:20)
DX: N20.0 Calculus of kidney (principal); N13.30 Unspecified hydronephrosis; Z96.0 Presence of urogenital implants; N81.10 Cystocele, unspecified; K21.9 Gastro-esophageal reflux disease without esophagitis; E78.00 Pure hypercholesterolemia, unspecified; Z79.899 Other long term (current) drug therapy; Z98.890 Other specified postprocedural states; Z87.891 Personal history of nicotine dependence
CPT/HCPCS: 52356; C1758; C1769; C2617; J0131; J0690; J1100; J2250; J2405; J2704; J3010; Q9967

== ENCOUNTER → 2023-10-20 09:12 | Outpatient (BNV) | payer OTHER, SELFPAY | PROVIDERS: PCP Internal Medicine; Visit Provider Urology | DX: N13.2 Hydronephrosis with renal and ureteral calculous obstruction (principal) | CPT/HCPCS: 52356 ==

== ENCOUNTER 2023-10-23 08:38 | Outpatient (AMB) | payer OTHER, SELFPAY ==
--- NOTE | 2023-10-23 08:53 | A.OFFVIS_ITS ---
Intake Visit Reasons: Cysto/Stent removal Intake Note: Patient presents to the office today for a cysto/stent removal Urology Medication:Pyridium (PRN) Antibiotic Allergies: None Blood Thinners:None Cystoscope: Lot: [id number] Exp:04/30/26 Allergies No Known Allergies Allergy (Verified 10/23/23 08:53) Medication List - Last Reconciled 10/23/23 by Delmis Mansfield MD [fiber 1 tab PO DIRECTED] [iron 1 tab PO DAILY] [multivitamin 1 tab PO DIRECTED] omeprazole 20 mg PO DAILY oxycodone 5 mg PO Q8H PRN oxycodone-acetaminophen 5-325 mg (Percocet) 1 tab PO Q6-8H PRN phenazopyridine (Pyridium) 200 mg PO BID PRN pyridoxine (vitamin B6) 100 mg PO DAILY 90 days simvastatin 40 mg PO DAILY [Vitamin C 1 cap PO DAILY] [Vitamin D (with calcium) 1 tab PO DAILY] HPI Comments Details: 10/23/23--Here for stent removal. s/p Left ureteroscopy, stent exchange. No ureteral stones present, renal calculus in the left lower pole calyx, not adequately fragmented. Plan Left ESWL. KUB. Review of chart: 10/14/23--Marni is here for evaluation due to kidney stones. The patient was at her son's wedding out of town several days ago when she started to have severe left flank pain patient she was transported to the nearby hospital was diagnosed with an obstructing left ureteric stone requiring hospitalization and stent placement. She was seen at [facility] [place] emergency room on 10/12/2023: CTAP --Edema of the left kidney. Mild hydronephrosis. There is a double-J stent from the left renal pelvis to the urinary bladder. There are 2 calculi within a left lower pole calyx measuring 2 mm and 4 mm. There is left periureteric stranding. The right kidney is unremarkable. Urine culture sent on 10/12/2023--no growth I have discussed ureteroscopy for further evaluation. [facility] Medical History High cholesterol Chronic GERD Surgical History H/O cystoscopy Tubal ligation status H/O endoscopy H/O colonoscopy History of back surgery History of cholecystectomy H/O: hysterectomy H/O tooth extraction Social History Are you a primary palliative care specialist to a significant other at home: No Patient Tobacco Use Status: Former Tobacco user Tobacco use type: Cigarette Years Smoked: 25 Review of Systems Const All systems reviewed & are unremarkable except as noted in HPI and below Reports no additional complaints Eyes Reports no additional complaints ENT Reports no additional complaints Card Reports no additional complaints Resp Reports no additional complaints GI Reports no additional complaints Reports as per HPI Musc Reports no additional complaints Skin/Breast Reports system reviewed and no additional complaints, except as documented Neuro Reports no additional complaints Psych Reports no additional complaints Endo Reports no additional complaints Dontae/Lymph Reports no additional complaints Aller/Immun Reports no additional complaints Office Procedures Cystoscopy Consent Discussed risk and benefit or proposed procedure with the patient. Information consent for procedure given to the patient. Discussed technical aspects, risks, benefits and alternatives in full. Addressed all of the patient's questions and concerns regarding the procedure. The patient demonstrated knowledge and understanding. They wish to proceed with this procedure. Preparation The patient was prepped in the usual manner. A system operation superintendent was present and in the room. Genitalia was prepped with betadine solution in a sterile manner. Lidocaine Jelly 2% was placed into the urethra and 16Fr flexible Olympus cystoscope was inserted into the meatus after adequate lubrication. Procedure Time out per protocol performed. Bladder Inspection Cystoscopy findings: mild edema ureteral orifice which is expected, distal end of ureteral stent visualized. The grasping forceps were used and the stent was removed without difficulty. [id number] with stent removal DISPOSABLE SCOPE URO-G FLEXIBLE SCOPE Procedure code (CPT) selection complete Office Meds lidocaine HCl 2 % mucosal jelly in applicator Performing Provider: Delmis Mansfield MD Performing Location[facility] [place] [facility] Administered by: Jesus Escobar LPN on 10/23/23 09:05 Dose Route Admin Location Dispensed Lot Number Expiration Date NDC Circuitry Negative Inspector 10 mL intra-urethral 10 mL naproxen 500 mg tablet Performing Provider: Delmis Mansfield MD Performing Location: [facility] [place] [facility] Administered by: Jesus Escobar LPN on 10/23/23 09:05 Dose Route Admin Location Dispensed Lot Number Expiration Date NDC Circuitry Negative Inspector 500 mg PO 1 tab ciprofloxacin HCl 500 mg tablet Performing Provider: Delmis Mansfield MD Performing Location: [facility] [place] [facility] Administered by: Jesus Escobar LPN on 10/23/23 09:05 Dose Route Admin Location Dispensed Lot Number Expiration Date NDC Circuitry Negative Inspector 500 mg PO 1 tab Results AMB Urinalysis, Automated UA Leukoctes 15 Marlyn/uL Last Edit by Fina Guerin CMA on 10/23/23 09:01 UA Nitrite Negative Last Edit by Fina Guerin, ABHI on 10/23/23 09:01 UA Urobilinogen 0.2 mg/dL Last Edit by Fina Guerin CMA on 10/23/23 09:01 UA Protein 15 mg/dL Last Edit by Fina Guerin, ABHI on 10/23/23 09:01 UA pH 6.5 Last Edit by Fina Guerin, ABHI on 10/23/23 09:01 UA Blood 200 Foster/uL Last Edit by Fina Guerin, ABHI on 10/23/23 09:01 UA Specific Mark 1.015 Last Edit by Fina Guerin, ABHI on 10/23/23 09:01 UA Ketone Negative Last Edit by Fina Guerin CMA on 10/23/23 09:01 UA Bilirubin 0 mg/dL Last Edit by Fina Guerin CMA on 10/23/23 09:01 UA Glucose 0 mg/dL Last Edit by Fina Guerin CMA on 10/23/23 09:01 Results Reviewed Results Reviewed: Laboratory Last Values Urine pH (Auto) 6.5 10/23/23 08:56 Specific Mark (Auto) 1.015 10/23/23 08:56 Urine Protein (Auto) 15 mg/dL 10/23/23 08:56 Glucose (UA)(Auto) 0 mg/dL 10/23/23 08:56 Urine Ketones (Auto) Negative 10/23/23 08:56 Urine Blood (Auto) 200 Foster/uL 10/23/23 08:56 Urine Nitrite (Auto) Negative 10/23/23 08:56 Urine Bilirubin (Auto) 0 mg/dL 10/23/23 08:56 Urine Urobilinogen (Auto) 0.2 mg/dL 10/23/23 08:56 Leukocyte Esterase (Auto) 15 Marlyn/uL 10/23/23 08:56 Assessment & Plan Assessment & Plan (1) Kidney stone: Code(s): N20.0 - Calculus of kidney Category: Medical (2) Ureteral stent present: Code(s): Z96.0 - Presence of urogenital implants Category: Medical (3) Hydronephrosis: Code(s): N13.30 - Unspecified hydronephrosis Category: Medical Plan KUB Xray Schedule Left ESWL Orders: Orders AMB Urinalysis Automated Today N13.30 - Unspecified hydronephrosis AMB Cystoscopy Today N13.30 - Unspecified hydronephrosis, N20.0 - Calculus of kidney, Z96.0 - Presence of urogenital implants XR KUB Today N20.0 - Calculus of kidney Patient Instructions: The patient had an opportunity to ask questions regarding treatment plan. The patient expressed understanding and agreement with the above treatment plan. The patient is aware they should contact our office by phone for worsening of their current condition or the appearance of new symptoms. Compliance is encouraged with any medications and followup testing that is ordered. It is a privilege to be allowed the opportunity to participate in the urologic care of your patient. If you have any questions or concerns regarding treatment for the above conditions please do not hesitate to contact me. The office telephone contact is [phone]. This note is constructed in part using voice recognition software. While every effort has been made to ensure accuracy distribution sales representative errors may have been included. Yours sincerely, Delmis Mansfield MD Coding Level of Care Code Procedure Only Diagnoses Kidney stone N20.0 Ureteral stent present Z96.0 Hydronephrosis N13.30 CPT Codes Cystoscopy - CPT: 79301-[id number] with stent removal ([id number])
== END 2023-10-23 09:29 | disposition home or self-care (01) ==
PROVIDERS: PCP Internal Medicine; Visit Provider Urology
DX: N20.0 Calculus of kidney (principal); Z96.0 Presence of urogenital implants; N13.30 Unspecified hydronephrosis
CPT/HCPCS: 52310

== ENCOUNTER → 2023-10-23 08:38 | Outpatient (BNVA) | payer OTHER, SELFPAY | PROVIDERS: PCP Internal Medicine; Visit Provider Urology | DX: Z48.816 Encounter for surgical aftercare following surgery on the genitourinary system (principal) | CPT/HCPCS: 52310; 81003 ==

== ENCOUNTER 2023-10-27 07:29 | Outpatient (REF) | payer OTHER, SELFPAY ==
--- NOTE | ~2023-10-27 | XR_ITS ---
EXAMINATION: XR KUB CLINICAL INDICATION: Renal stones COMPARISON: CT dated 10/12/2023 TECHNIQUE: AP view of the abdomen. FINDINGS/ XR/XR KUB IMPRESSION: Lines or devices: Right upper quadrant cholecystectomy clips. Calcifications measuring up to 9 mm projecting over the inferior pole of the left renal shadow. No abnormal calcifications along the expected course of the ureters. Nonobstructive bowel gas pattern. Visualized portions of the lung bases appear clear. Electronically signed by: Yvonne Trinidad MD 11/24/2023 06:31 PM EDT
== END 2023-10-27 07:30 | disposition home or self-care (01) ==
LOC: HO.XRAY 07:29
PROVIDERS: PCP Internal Medicine; Visit Provider Urology
DX: N20.0 Calculus of kidney (principal)
CPT/HCPCS: 74018

== ENCOUNTER 2023-11-18 07:37 | Day surgery (SDC) | payer OTHER, SELFPAY ==
[2023-11-13 14:18] VITALS: BMI 33.3
--- NOTE | 2023-11-17 10:15 | P.CONAN_ITS ---
Documented by User: Lindsey Salazar NP 11/17/23 10:16 HPI - Anesthesia Eval Consult details Narrative: 53yo F for Left ESWL s/p cysto, etc 10/2023 with GA-LMA 4 PMFSH Active Problems Active Problems: All Active Problems Kidney stone on left side (Acute) Hydronephrosis (Acute) Ureteral stent present (Acute) Kidney stone (Acute) Past Medical History Medical History High cholesterol Chronic GERD Family History Family history of problems with anesthesia: No Surgical History Surgical History H/O cystoscopy Tubal ligation status H/O endoscopy H/O colonoscopy History of back surgery History of cholecystectomy H/O: hysterectomy H/O tooth extraction History of Problems with Anesthesia: No Social History Social History Are you a primary technical healthcare consultant to a significant other at home: No Do you presently have visiting nurse or other home services: No Patient Tobacco Use Status: Former Tobacco user Tobacco use type: Cigarette Years Smoked: 25 Use of substances other than those prescribed or required for medical reasons: Yes Substance Use Frequency: Daily Have you been hit, kicked, punched, or otherwise hurt by someone within the past year? If so, by whom?: No Are you DNR?: No Advance Directives: No Advance Directives Information Provided: Yes Recently lost weight without trying: No Meds Allergies Allergy/AdvReac Type Severity Reaction Status Date / Time No Known Allergies Allergy Verified 10/23/23 08:53 Home Medications ?Medication ?Instructions ?Recorded ?Confirmed ?Last Taken ?Type Vitamin C 1 cap PO DAILY 11/21/22 10/23/23 Unknown History Vitamin D (with calcium) 1 tab PO DAILY 11/21/22 10/23/23 Unknown History fiber 1 tab PO DIRECTED 11/21/22 10/23/23 Unknown History multivitamin 1 tab PO DIRECTED 11/21/22 10/23/23 Unknown History omeprazole 20 mg capsule,delayed 20 mg PO DAILY 11/21/22 10/23/23 11/18/23 History release simvastatin 40 mg tablet 40 mg PO DAILY 11/21/22 10/23/23 Unknown History iron 1 tab PO DAILY 10/20/23 10/23/23 10/13/23 History Exam Height,Weight and Vital Signs: Height 5 ft 2 in Weight 82.645 kg Pertinent Lab Results Pertinent Lab Results: Laboratory Tests 10/12/23 10:25 WBC 9.5 Hgb 13.2 Hct 38.8 Plt Count 242 D Sodium 143 Potassium 3.5 Chloride 109 H Carbon Dioxide 26 BUN 10 Creatinine 0.71 Assessment and Plan Assessment Anesthesia Assessment: Chart Reviewed Final Anesthetic Review Family History of Problems with Anesthesia: No History of Problems with Anesthesia: No Documented by User: Monika Menon MD 11/18/23 10:54 [facility] Past Medical History Medical History High cholesterol Chronic GERD Surgical History Surgical History H/O cystoscopy Tubal ligation status H/O endoscopy H/O colonoscopy History of back surgery History of cholecystectomy H/O: hysterectomy H/O tooth extraction Social History Social History Are you a primary technical healthcare consultant to a significant other at home: No Do you presently have visiting nurse or other home services: No Patient Tobacco Use Status: Former Tobacco user Tobacco use type: Cigarette Years Smoked: 25 Use of substances other than those prescribed or required for medical reasons: Yes Substance Use Frequency: Daily Have you been hit, kicked, punched, or otherwise hurt by someone within the past year? If so, by whom?: No Are you DNR?: No Advance Directives: No Advance Directives Information Provided: Yes Recently lost weight without trying: No Meds Allergies Allergy/AdvReac Type Severity Reaction Status Date / Time No Known Allergies Allergy Verified 10/23/23 08:53 Home Medications ?Medication ?Instructions ?Recorded ?Confirmed ?Last Taken ?Type Vitamin C 1 cap PO DAILY 11/21/22 10/23/23 Unknown History Vitamin D (with calcium) 1 tab PO DAILY 11/21/22 10/23/23 Unknown History fiber 1 tab PO DIRECTED 11/21/22 10/23/23 Unknown History multivitamin 1 tab PO DIRECTED 11/21/22 10/23/23 Unknown History omeprazole 20 mg capsule,delayed 20 mg PO DAILY 11/21/22 10/23/23 11/18/23 History release simvastatin 40 mg tablet 40 mg PO DAILY 11/21/22 10/23/23 Unknown History iron 1 tab PO DAILY 10/20/23 10/23/23 10/13/23 History Exam Airway Mallampati Class: II TM Dist: >3cm Neck ROM: Full Heart: rrr Lungs: cta Assessment and Plan Final Anesthetic Review NPO: Yes ASA Class: II Final Preanesthetic Review: No Changes in Pt Med Stat, Meds/Allgs Chart Reviewed, Consent Obtained/Reviewed and Anes Risks/Benef Reviewed Patient Risk: Intermediate Procedure Risk: Low Anesthetic Plan Anesthetic Plan: GA Disposition: Standard PACU
--- NOTE | ~2023-11-18 | XR_ITS ---
EXAMINATION: XR ABDOMEN KUB CLINICAL INDICATION: Left ESWL. COMPARISON: Abdominal radiograph 10/27/2023. TECHNIQUE: AP view of the abdomen. FINDINGS: Stable up to 1 cm calcifications projecting over the inferior pole of the left renal shadow. Nonobstructive bowel gas pattern. No acute osseous findings. Right upper quadrant surgical clips. Stable left-sided pelvic phleboliths. XR/XR KUB IMPRESSION: Stable up to 1 cm calcifications projecting over the inferior pole of the left kidney Electronically signed by: Fabiola Cali MD 12/07/2023 02:33 PM EDT
[2023-11-18 08:22] VITALS: BP 143/86; PULSE 76; RESP 16; TEMP 36.7; O2SAT 98; BMI 33.4
[2023-11-18] MEDS: Lactated Ringers 1,000 ML 100 ML IVCONT (08:38)
--- NOTE | 2023-11-18 11:04 | MHC.SHP ---
Pre-Procedural Eval Section A - 24 Hr Update-Section A only Date of Service: 11/18/23 The patient is an INPATIENT: No The patient has been examined within 24 hours of the surgical procedure. The History & Physical has been completed within 30 days and I have reviewed it.: Yes Section B - Complete if H&P > 30 days Chief Complaint: Calculus of kidney Allergies: Allergies Allergy/AdvReac Type Severity Reaction Status Date / Time No Known Allergies Allergy Verified 10/23/23 08:53 Plan Diagnosis/Plan: Unchanged I have reviewed the history and physical and performed a pertinent physical examination on my patient. No changes have occurred unless specified. Left ESWL. Discussed risks to include but not limited to, blood in the urine, bruising to the skin, kidney hematoma, possible need for another procedure if a stone fragment obstructs the ureter while passing, possible need to repeat procedure if stone is not completely fragmented. Time Spent With Patient Time: Total time managing care of this patient today ____ minutes.
--- NOTE | 2023-11-18 11:49 | W.PM.OPN ---
Operative Note Operative Note Date of Service: 11/18/23 Narrative: PreOperative Diagnosis:? ? Left Renal stones Post Operative Diagnosis:?Left? Renal stones Procedure:?Left? ESWL Surgeon:?Dr Delmis Mansfield Anesthesia:? General Indications for procedure: The patient understands there is a risk of bruising or hematoma to the kidney, infection, and stone migration following the procedure and subsequent intervention may be required.? - Imaging - 2 adjacent stones left kidney lower pole 5 mm and 3 mm stone Procedure: After informed consent was verified the patient was brought to the operating room and placed in a supine position.? Anesthesia was performed per protocol. Safety pause time-out was performed. Imaging was displayed in the room and laterality confirmed. ESWL was performed.?The stone was visualized on both fluoroscopy and ultrasound.? Shockwave lithotripsy was performed, with a maximum rate of 180 hertz. The first 300 shocks at 60 hertz followed by pause for 3 minutes was completed.? A total of 2500 shocks to a maximum of power of 17 with a maximum rate of 180 hertz.? Good fragmentation of the stone was appreciated. The patient tolerated the procedure well and was transferred to the recovery area upon completion. Complications: None
[2023-11-18 11:57] VITALS: BP 129/71; PULSE 74; RESP 16; TEMP 36.1
[2023-11-18 12:00] VITALS: BP 116/71; PULSE 71; RESP 16; O2SAT 98
[2023-11-18 12:05] VITALS: BP 130/85; PULSE 70; RESP 16; O2SAT 98
[2023-11-18 12:10] VITALS: BP 144/93; PULSE 73; RESP 16; O2SAT 98
[2023-11-18 12:25] VITALS: BP 119/67; PULSE 70; RESP 16; TEMP 36.1; O2SAT 98
== END 2023-11-18 13:49 | disposition home or self-care (01) ==
PROVIDERS: PCP Internal Medicine; Visit Provider Urology
PROC: (CPT 50590; principal; 2023-11-18 09:50)
DX: N20.0 Calculus of kidney (principal); E78.00 Pure hypercholesterolemia, unspecified; K21.9 Gastro-esophageal reflux disease without esophagitis; Z98.890 Other specified postprocedural states; Z79.899 Other long term (current) drug therapy; Z87.891 Personal history of nicotine dependence
CPT/HCPCS: 50590; 74018; J0131; J0690; J1100; J2405; J2704

== ENCOUNTER → 2023-11-18 07:37 | Outpatient (BNV) | payer OTHER, SELFPAY | PROVIDERS: PCP Internal Medicine; Visit Provider Urology | DX: N20.0 Calculus of kidney (principal) | CPT/HCPCS: 50590 ==

== ENCOUNTER 2023-12-07 14:46 | Outpatient (REF) | payer OTHER, SELFPAY ==
--- NOTE | ~2023-12-07 | US_ITS ---
EXAMINATION: US RETROPERITONEAL LIMITED (RENAL ONLY) CLINICAL INFORMATION: Calculus of kidney. COMPARISON: CT abdomen and pelvis 10/12/2023. TECHNIQUE: Real-time imaging of the kidneys. FINDINGS: RIGHT KIDNEY: 10.4 x 4.4 x 5.5 cm (SAG x AP x TRV). The kidney is normal in size, contour, and echogenicity. Renal cortical thickness is normal. No calculi or focal parenchymal lesions. No hydronephrosis. LEFT KIDNEY: 10.4 x 5.7 x 5.4 cm (SAG x AP x TRV). The kidney is normal in size, contour, and echogenicity. Renal cortical thickness is normal. No focal parenchymal lesions. Previously described subcentimeter calculus in the lower pole of the left kidney is not definitively visualized. No hydronephrosis. US/US renal BI IMPRESSION: Previously described subcentimeter calculus in the lower pole of the left kidney is not definitively visualized. No right renal calculus. No hydronephrosis. Electronically signed by: Renard Sam MD 12/09/2023 08:45 AM EDT
--- NOTE | ~2023-12-07 | XR_ITS ---
EXAMINATION: XR ABDOMEN KUB CLINICAL INDICATION: N20.0 - Calculus of kidney COMPARISON: None available. TECHNIQUE: AP view of the abdomen. FINDINGS: A left-sided 10 x 4 mm calculus has progressed slightly more distally, now overlying the left psoas just to the left of the L3 vertebral body. This likely lies within the proximal ureter or at the UPJ. No additional abnormal calcifications seen. Cholecystectomy clips are noted. No organomegaly or large abdominal mass. Normal bowel gas pattern. Osseous structures demonstrate mild levoconvex scoliosis of the lumbar spine with mild to moderate associated lower lumbar degenerative changes. Mild degenerative SI joint changes. Minimal degenerative hip joint changes. XR/XR KUB IMPRESSION: 1. A 10 x 4 mm calculus has progressed slightly more distally on the left, presumably within the left proximal ureter or left UPJ. 2. No additional abnormal calcifications. Electronically signed by: Gonzalez Dahl MD 02/15/2024 10:05 AM [facility]
== END 2023-12-07 14:47 | disposition home or self-care (01) ==
LOC: HO.US 14:46
PROVIDERS: PCP Internal Medicine; Visit Provider Urology
DX: N20.0 Calculus of kidney (principal); N13.30 Unspecified hydronephrosis; Z96.0 Presence of urogenital implants
CPT/HCPCS: 74018; 76775

== ENCOUNTER → 2023-12-07 14:50 | Outpatient (BNV) | payer OTHER, SELFPAY | PROVIDERS: PCP Internal Medicine; Visit Provider Radiology Diagnostic Radiology | DX: N20.0 Calculus of kidney (principal) | CPT/HCPCS: 74018 ==

== ENCOUNTER 2023-12-25 13:57 | Outpatient (AMB) | payer OTHER, SELFPAY ==
--- NOTE | 2023-12-25 14:02 | MHC.OFFVIS ---
Intake Visit Reasons: ESWL- follow up/KUB/US Intake Note: Patient presents to the office today for a eswl f/u KUB/US Urology Medication:Pyridium, PERCOCET, VITAMIN B6, OXYCODONE Antibiotic Allergies: None Blood Thinners:None Electroencephalograph Technician Required: No Allergies No Known Allergies Allergy (Verified 12/25/23 14:04) HPI Comments Details: 12/25/23--status post left ESWL, 11/18/2023, discussed follow-up renal ultrasound 12/07/2023-Previously described subcentimeter calculus in the lower pole of the left kidney is not definitively visualized. No right renal calculus. No hydronephrosis. Discussed metabolic workup-24 hour urine collection Review of chart: 10/23/23--Here for stent removal. s/p Left ureteroscopy, stent exchange. No ureteral stones present, renal calculus in the left lower pole calyx, not adequately fragmented. Plan Left ESWL. KUB. 10/14/23--Marni is here for evaluation due to kidney stones. The patient was at her son's wedding out of town several days ago when she started to have severe left flank pain patient she was transported to the nearby hospital was diagnosed with an obstructing left ureteric stone requiring hospitalization and stent placement. She was seen at [facility] emergency room on 10/12/2023: CTAP --Edema of the left kidney. Mild hydronephrosis. There is a double-J stent from the left renal pelvis to the urinary bladder. There are 2 calculi within a left lower pole calyx measuring 2 mm and 4 mm. There is left periureteric stranding. The right kidney is unremarkable. Urine culture sent on 10/12/2023--no growth I have discussed ureteroscopy for further evaluation. [facility] Medical History High cholesterol Chronic GERD Surgical History H/O cystoscopy Tubal ligation status H/O endoscopy H/O colonoscopy History of back surgery History of cholecystectomy H/O: hysterectomy H/O tooth extraction Social History Are you a primary managed care nurse to a significant other at home: No Do you presently have visiting nurse or other home services: No Patient Tobacco Use Status: Former Tobacco user Tobacco use type: Cigarette Years Smoked: 25 Results AMB Urinalysis, Automated UA Leukoctes 0 Marlyn/uL Last Edit by LEVON Ren on 12/25/23 14:15 UA Nitrite Negative Last Edit by LEVON Ren on 12/25/23 14:15 UA Urobilinogen 0.2 mg/dL Last Edit by Enrique Costa CCM on 12/25/23 14:15 UA Protein 0 mg/dL Last Edit by Enrique Costa CCM on 12/25/23 14:15 UA pH 6.0 Last Edit by Enrique Costa [facility] on 12/25/23 14:15 UA Blood 25 Foster/uL Last Edit by Enrique Costa CCM on 12/25/23 14:15 UA Specific [place] 10.15 Last Edit by Enrique Costa CCM on 12/25/23 14:15 UA Ketone Negative Last Edit by Enrique Costa CCM on 12/25/23 14:15 UA Bilirubin 0 mg/dL Last Edit by Enrique Costa [facility] on 12/25/23 14:15 UA Glucose 0 mg/dL Last Edit by Enrique Costa [facility] on 12/25/23 14:15 Results Reviewed Results Reviewed: Laboratory Last Values Urine pH (Auto) 6.0 12/25/23 14:14 Specific [place] (Auto) 10.15 12/25/23 14:14 Urine Protein (Auto) 0 mg/dL 12/25/23 14:14 Glucose (UA)(Auto) 0 mg/dL 12/25/23 14:14 Urine Ketones (Auto) Negative 12/25/23 14:14 Urine Blood (Auto) 25 Foster/uL 12/25/23 14:14 Urine Nitrite (Auto) Negative 12/25/23 14:14 Urine Bilirubin (Auto) 0 mg/dL 12/25/23 14:14 Urine Urobilinogen (Auto) 0.2 mg/dL 12/25/23 14:14 Leukocyte Esterase (Auto) 0 Marlyn/uL 12/25/23 14:14 Date of Service: 12/07/23 US RETROPERITONEAL LIMITED (RENAL ONLY) CLINICAL INFORMATION: Calculus of kidney. COMPARISON: CT abdomen and pelvis 10/12/2023. TECHNIQUE: Real-time imaging of the kidneys. FINDINGS: RIGHT KIDNEY: 10.4 x 4.4 x 5.5 cm (SAG x AP x TRV). The kidney is normal in size, contour, and echogenicity. Renal cortical thickness is normal. No calculi or focal parenchymal lesions. No hydronephrosis. LEFT KIDNEY: 10.4 x 5.7 x 5.4 cm (SAG x AP x TRV). The kidney is normal in size, contour, and echogenicity. Renal cortical thickness is normal. No focal parenchymal lesions. Previously described subcentimeter calculus in the lower pole of the left kidney is not definitively visualized. No hydronephrosis. IMPRESSION: Previously described subcentimeter calculus in the lower pole of the left kidney is not definitively visualized. No right renal calculus. No hydronephrosis. Date of Service: 10/12/23 EXAMINATION: CT ABDOMEN AND PELVIS WITHOUT CONTRAST CLINICAL INFORMATION: Abdominal pain. Status post left ureteric stent 2 days ago. COMPARISON: 06/24/2019 TECHNIQUE: Multidetector volumetric imaging was performed from the superior aspect of the liver through the pubic symphysis. Sagittal and coronal reformatted images were obtained on the technologist's workstation. This CT examination was performed using dose optimization techniques as appropriate, variously including the following: *Automated exposure control *Adjustment of mA and/or kV according to patient size (this includes techniques or standardized protocols for targeted exams where dose is matched to indication/reason for exam; i.e. extremities or head) *Use of iterative reconstruction technique DLP: 786 mGy-cm FINDINGS: LUNG BASES: Small hiatal hernia. LIVER, GALLBLADDER, AND BILIARY TREE: The noncontrast liver is decreased in attenuation. No biliary ductal dilatation is present. The gallbladder is surgically absent. PANCREAS: No ductal dilatation. SPLEEN: Not enlarged. ADRENAL GLANDS: No adrenal mass. KIDNEYS AND URETERS: Edema of the left kidney. Mild hydronephrosis. There is a double-J stent from the left renal pelvis to the urinary bladder. There are 2 calculi within a left lower pole calyx measuring 2 mm and 4 mm. There is left periureteric stranding. The right kidney is unremarkable. BLADDER: Few foci of nondependent gas. GASTROINTESTINAL TRACT: Small and large bowel loops are of normal caliber. Appendix is within normal limits. Diverticular disease of the colon. ABDOMINAL WALL: No significant hernia is appreciated. LYMPH NODES: No bulky lymphadenopathy. VASCULAR: Normal caliber abdominal aorta. PELVIC VISCERA: Uterus is surgically absent. Ovaries are unremarkable. OSSEOUS STRUCTURES: No destructive bone lesions. IMPRESSION: Edema of the left kidney with mild left hydronephrosis. A double-J stent is in place with left periureteric stranding. 2 mm and 4 mm nonobstructing calculi in the left lower pole calyx. No definite calculi seen along the course of the stent. Assessment & Plan Assessment & Plan (1) Kidney stone: Code(s): N20.0 - Calculus of kidney Category: Medical Plan 24 hour urine collection Orders: Orders AMB Urinalysis Automated 12/25/23 Z13.9 - Encounter for screening, unspecified Patient Instructions: The patient had an opportunity to ask questions regarding treatment plan. The patient expressed understanding and agreement with the above treatment plan. The patient is aware they should contact our office by phone for worsening of their current condition or the appearance of new symptoms. Compliance is encouraged with any medications and followup testing that is ordered. It is a privilege to be allowed the opportunity to participate in the urologic care of your patient. If you have any questions or concerns regarding treatment for the above conditions please do not hesitate to contact me. The office telephone contact is [phone]. This note is constructed in part using voice recognition software. While every effort has been made to ensure accuracy chief technician errors may have been included. Yours sincerely, Delmis Mansfield MD Coding Level of Care Code Global (76388) Diagnoses Kidney stone N20.0
== END 2023-12-25 14:45 | disposition home or self-care (01) ==
PROVIDERS: PCP Internal Medicine; Visit Provider Urology
DX: N20.0 Calculus of kidney (principal)
CPT/HCPCS: 99024

== ENCOUNTER → 2023-12-25 13:57 | Outpatient (BNVA) | payer OTHER, SELFPAY | PROVIDERS: PCP Internal Medicine; Visit Provider Urology | DX: N20.0 Calculus of kidney (principal); Z98.890 Other specified postprocedural states | CPT/HCPCS: 81003 ==

== ENCOUNTER 2024-06-13 13:11 | Outpatient (REF) | payer OTHER, SELFPAY ==
--- OUTSIDE RECORDS SUMMARY | 2024-06-13 14:53 | XMS_ITS | Patient Health Record ---
Author Organization [facility] Address [address] [place] [address] Care Team Providers Care Straightedge Worker Name Role Phone Jakob Solomon MD Primary Care Provider Amari Ac Unavailable [phone] Allergies No Known Allergies Reason For Referral No Information Medications Medication SIG (Take, Route, Frequency, Duration) Notes Start Date End Date Status Vitamin D 1000 UNIT 1 tablet Orally Once a day for 30 day(s) Active Multivitamin Adults - as directed Orally Active Vitamin C 500 MG as directed Orally Active Iron 325 (65 Fe) MG 1 tablet Orally Once a day for 30 day(s) Not-Taking Simvastatin Active Omeprazole 20MG 1 capsule Orally Onc e a day for 90 Active Fiber 600 MG as directed Orally Active Immunizations Vaccine Route Administration Date Status Comme nts Influenza Unknown 09/02/2018 Refused Influenza Unknown 08/27/2022 Refused Problems Problem Type SNOMED Code ICD Code Onset Dates Problem Status W/U Status Risk Notes Problem Esophageal reflux (417106557) Esophageal reflux (K21.9) Active confirmed Problem 286634214 Encounter for screening for malignant neoplasm of colon (Z12.11) Active confirmed Problem 095561319 History of adenomatous polyp of colon (Z86.010) Active confirmed Problem 518428834 Gastroesophageal reflux disease without esophagitis (K21.9) Active confirmed Problem History of polyp of colon (408682101) History of colon polyps (Z86.010) Active confirmed Problem 881567042 Family history o f colon cancer (Z80.0) Active confirmed Problem Bryan esophagus (348801462) 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 Problem Diverticulosis of colon (470707978) Diverticulosis of colon (K57.30) Active confirmed Problem 384493319 Bryan''s esophagus without dysplasia (K22.70) Active confirmed Problem 265881315 Serrated adenoma of colon (D12.6) Active confirmed Problem 470273690 Serrated polyp o f colon (K63.5) Active confirmed Plan Of Treatment Future Test Test Name Order Date UPPER GI ENDOSCOPY 09/30/2013 UPPER GI ENDOSCOPY 09/02/2018 COLONOSCOPY 09/02/2018 COLONOSCOPY 03/01/2019 UPPER GI ENDOSCOPY 08/27/2022 COLONOSCOPY 08/27/2022 Insurance Providers Payer Name Payer Address Payer Phone Subscriber Number Group Number Insured Name Patient Relationship to Insured Coverage Start Date Coverage End Date [facility] [address] [place] [address] [id number] EDWARD VAZQUEZ Self - patient is the insured Medical (General) History Medical History History ICD Code Colonoscopy 05-17-2007--hyperp lastic polyp, diverticulosis, and internal hemorrhoids Hyperlipidemia Bryan's esophagus and refl ux-- EGD in 12/2010-small HH and small area of Bryan's-no dysplasia Denies AK,DM,CVA,Lung disease,renal dise ase Diverticulitis in 2005 Fibroids in uterus with heav y bleeding and Iron def. anemia--probably havuing a hysterectomy later in 2018 Urinary incontinence- mild Colonoscopy in 12/2013 with 1 tubular ad enoma removed EGD in 12/2013 with small area of Gaudencio t's--no dysplasia, small HH EGD in 10/2018--small area of Bryan's esophagus with biopsies negative for dysplasia small hiatal hernia, Colonoscopy in 10/2018--quest ionable area on ileocecal valve with biopsies raising a suspicion of a serrated polyp as opposed to just hyperplastic and/or inflammatory normal tissue; also several other hyperplastic polyps were removed. Colonoscopy in 07/2019-small tubular adenoma removed in the transverse colon, and further polyp tissue removed from the ileocecal valve although tissue was not recovered for pathology Surgical History Surgery Date(Month/Year) BTL Cholecystectomy [place] [address] Mark Peral[facility] Hysterectomy 12/2018
== END 2024-06-13 13:12 | disposition home or self-care (01) ==
LOC: HO.MAMMO 13:11
PROVIDERS: Absent Provider Internal Medicine; PCP Internal Medicine; Visit Provider Internal Medicine
DX: Z12.31 Encounter for screening mammogram for malignant neoplasm of breast (principal)
CPT/HCPCS: 77063; 77067

== ENCOUNTER → 2024-06-13 13:15 | Outpatient (BNV) | payer OTHER, SELFPAY | PROVIDERS: Absent Provider Internal Medicine; PCP Internal Medicine; Visit Provider Internal Medicine | DX: Z12.31 Encounter for screening mammogram for malignant neoplasm of breast (principal) | CPT/HCPCS: 77063; 77067 ==

== ENCOUNTER 2024-07-11 13:52 | Outpatient (REF) | payer OTHER, SELFPAY ==
--- NOTE | ~2024-07-11 | XR_ITS ---
EXAMINATION: XR KNEE, LEFT CLINICAL INFORMATION: S83.92XA - Sprain of unspecified site of left knee, initial encounter COMPARISON: None available. TECHNIQUE: Four views of the left knee. FINDINGS: No fracture, dislocation, or suspicious bone lesion. Normal bone mineralization. Normal alignment. Mild to moderate medial compartment joint space narrowing, and mild patellofemoral compartment narrowing. Extremely subtle chondrocalcinosis present. Mild spurring of the tibial spines. Small suprapatellar joint effusion. Soft tissues appear normal. XR/XR knee LT 4V IMPRESSION: 1. No acute bony abnormality. 2. Subtle chondrocalcinosis present. 3. Mild to moderate medial compartment and mild patellofemoral compartment arthritis. 4. Small suprapatellar joint effusion. Electronically signed by: Gonzalez Dahl MD 07/11/2024 03:32 PM EDT
== END 2024-07-11 13:53 | disposition home or self-care (01) ==
LOC: HO.HMGCX 13:52
PROVIDERS: PCP Internal Medicine; Visit Provider Nurse Practitioner Family
DX: S83.92XD Sprain of unspecified site of left knee, subsequent encounter (principal)
CPT/HCPCS: 73564

== ENCOUNTER 2024-07-11 13:52 | Outpatient (AMB) | payer OTHER, SELFPAY ==
--- NOTE | 2024-07-11 14:38 | AM.OFFWIN_ITS ---
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 Patient Tobacco Use Status: Former Tobacco user Allergies No Known Allergies Allergy (Verified 07/11/24 14:42) Do you need a note to return to daycare/school/sports/work: Yes HPI HPI Comments History of Present Illness Details 53 y/o Female patient who presents to [facility] walk in clinic with c/o Left knee pain that has been going on for few years now. Denies Injury or trauma to the Knee. [facility] Medical History (Updated 07/11/24 @ 15:08 by Anh Ernandez NP) Left knee sprain High cholesterol Chronic GERD Surgical History H/O cystoscopy Tubal ligation status H/O endoscopy H/O colonoscopy History of back surgery History of cholecystectomy H/O: hysterectomy H/O tooth extraction Social History Are you a primary skin care technician to a significant other at home: No Do you presently have visiting nurse or other home services: No Patient Tobacco Use Status: Former Tobacco user Tobacco use type: Cigarette Years Smoked: 25 Review of Systems Const All systems reviewed & are unremarkable except as noted in HPI and below Physical Exam Vital Signs: Last Vital Signs Pulse 83 07/11/24 14:42 BP 118/80 07/11/24 14:42 Pulse Ox 97 07/11/24 14:42 Oxygen Delivery Method Room Air 07/11/24 14:42 Const General: no acute distress Nutritional Appearance: obese morbidly obese Orientation/consciousness: patient oriented x3 Neuro General: patient oriented x3, gait normal and moves all extremities Extrem Left lower extremity: knee Details: normal to inspection, tenderness and normal ROM; no swelling, no lacerations, no ecchymosis, no crepitus and no deformity Psych Speech and movement: Normal speech and movement present Assessment & Plan Assessment & Plan (1) Left knee sprain: Code(s): S83.92XA - Sprain of unspecified site of left knee, initial encounter Qualifiers: Encounter type: initial encounter Involved ligament of knee: unspecified ligament Qualified Code(s): S83.92XA - Sprain of unspecified site of left knee, initial encounter Plan: Ordered Knee Xray. NSAIDs and Acetaminophen for pain relief. Ordered Physical Therapy. Ice/Hot Orders: Orders PT Evaluation and Treatment Today S83.92XA - Sprain of unspecified site of left knee, initial encounter Medications: New ibuprofen 800 mg PO Q8H 20 tabs 0RF S83.92XA - Sprain of unspecified site of left knee, initial encounter cyclobenzaprine 10 mg PO BEDTIME 14 tabs 0RF S83.92XA - Sprain of unspecified site of left knee, initial encounter diclofenac sodium 1% (Voltaren Arthritis Pain) 2 grams topical BID 100 grams 0RF S83.92XA - Sprain of unspecified site of left knee, initial encounter Coding Level of Care Code Est Pt Level 4 (70064) Diagnoses Sprain of left knee, unspecified ligament, initial encounter S83.92XA Encounter type: initial encounter Involved ligament of knee: unspecified ligament Time Spent (min) 20
[2024-07-11 14:42] VITALS: BP 118/80; PULSE 83; O2SAT 97
== END 2024-07-11 15:12 | disposition home or self-care (01) ==
PROVIDERS: PCP Internal Medicine; Visit Provider Nurse Practitioner Family
DX: S83.92XA Sprain of unspecified site of left knee, initial encounter (principal)

== ENCOUNTER → 2024-07-11 15:11 | Outpatient (BNV) | payer OTHER, SELFPAY | PROVIDERS: PCP Internal Medicine; Visit Provider Radiology Diagnostic Radiology | DX: M17.12 Unilateral primary osteoarthritis, left knee (principal); M11.262 Other chondrocalcinosis, left knee; M25.462 Effusion, left knee | CPT/HCPCS: 73564 ==

== ENCOUNTER 2024-08-18 11:04 | Outpatient (REF) | payer OTHER, BC, SELFPAY ==
--- NOTE | ~2024-08-18 | XR_ITS ---
CLINICAL HISTORY: M79.642 - Pain in left hand 3 view left hand Comparison: None Findings: Bones intact. No dislocations. Xsmz-fp-mhepaaym narrowing of the interphalangeal joints especially the 5th distal IP joint. Mild narrowing of the intercarpal and radiocarpal joints. No marginal erosive changes. No radiopaque foreign body. IMPRESSION: No acute fracture or dislocation. This document has been electronically signed by: Pily Berry DO on 08/18/2024 14:34:58
--- NOTE | ~2024-08-18 | XR_ITS ---
CLINICAL HISTORY: M54.16 - Radiculopathy, lumbar region 6 views cervical spine Comparison: None Findings: Normal alignment. No acute fractures or dislocation. Pqdc-zu-qllljxqm multilevel disc space narrowing. Mild facet degenerative changes with widely patent foramina. No prevertebral soft tissue swelling. IMPRESSION: 1. No acute fracture in the cervical spine. 2. Xiqf-ld-tvftvjdh disc degenerative changes. Mild facet degenerative changes. This document has been electronically signed by: Pily Berry DO on 08/18/2024 15:25:05
--- NOTE | ~2024-08-18 | XR_ITS ---
CLINICAL HISTORY: M54.16 - Radiculopathy, lumbar region 3 view right foot 3 view left foot Comparison: None Findings: Bones intact. No dislocations. Mild pes planus on the left. Mild arthritic changes in the distal forefoot and midfoot bilaterally. No erosions. No ankle effusion. No radiopaque foreign body. IMPRESSION: No acute fracture or dislocation. This document has been electronically signed by: Pily Berry DO on 08/18/2024 15:29:12
--- NOTE | ~2024-08-18 | XR_ITS ---
CLINICAL HISTORY: M54.16 - Radiculopathy, lumbar region 3 views lumbar spine Comparison: None Findings: 8 mm anterolisthesis L4 on L5. Remaining vertebral bodies are in satisfactory alignment. No acute fractures or dislocation. No significant vertebral body compression deformity. Mild to moderate multilevel disc space narrowing especially at L4-5 and L5-S1. Moderately severe multilevel facet degenerative changes especially at L5-S1. Slight levoscoliosis, apex L3. Multiple clips in the right upper quadrant. IMPRESSION: 1. No acute fracture in the lumbar spine. 2. Grade 1 spondylolisthesis at L4-5. 3. Degenerative changes as described. This document has been electronically signed by: Pily Berry DO on 08/18/2024 14:25:04
== END 2024-08-18 11:05 | disposition home or self-care (01) ==
LOC: HO.XRAY 11:04
PROVIDERS: PCP Internal Medicine; Visit Provider Internal Medicine
DX: M54.16 Radiculopathy, lumbar region (principal); M79.645 Pain in left finger(s); M25.562 Pain in left knee; G89.29 Other chronic pain; E78.00 Pure hypercholesterolemia, unspecified; M54.2 Cervicalgia; M79.2 Neuralgia and neuritis, unspecified; D22.9 Melanocytic nevi, unspecified; M79.642 Pain in left hand; M79.672 Pain in left foot; M79.671 Pain in right foot
CPT/HCPCS: 72050; 72100; 73120; 73630; 96127

== ENCOUNTER 2024-08-18 11:04 | Outpatient (AMB) | payer OTHER, SELFPAY ==
--- NOTE | 2024-08-18 10:57 | MHC.PC.OV ---
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 Last seen by pcp Multiple complaints -Left 5th finger DIP pain and cyst -Bilateral foot pain burning after sitting or standing. Chronic low back pain -Tingling, shoot pain in the head -Pimple like lesions of the scalp GERD: on omeprazole CV: on simvastatin Mammo 05/2024 Colonoscopy 11/2022 ROS see HPI PHYSICAL EXAM: GENERAL: Alert and oriented x 3. NAD EYES: EOMI. Anicteric. HENT: Moist mucous membranes. No scleral icterus. No cervical lymphadenopathy. LUNGS: Clear to auscultation bilaterally. CARDIOVASCULAR: Regular rate and rhythm. No murmur. No JVD. ABDOMEN: Soft, non-tender +bs EXTREMITIES: No edema. Non-tender. SKIN: No rashes or lesions. Warm. NEUROLOGIC: No focal neurological deficits. CN II-XII grossly intact PSYCHIATRIC: Cooperative. Appropriate mood and affect FORMERLY [facility] Medical History Left knee sprain High cholesterol Chronic GERD Surgical History H/O cystoscopy Tubal ligation status H/O endoscopy H/O colonoscopy (~11/24/22) History of back surgery History of cholecystectomy H/O: hysterectomy H/O tooth extraction Family History Mother No problems noted. Father No problems noted. Social History Housing: Condominium Are you a primary school childcare attendant to a significant other at home: No Do you presently have visiting nurse or other home services: No Patient Tobacco Use Status: Former Tobacco user Tobacco use type: Cigarette Years Smoked: 25 e-Cigarette/Vaping Use: Former Use service: No Current occupational status: employed Cognitive needs: No Hearing needs: No Vision needs: Yes (reading glasses) Questionnaire PHQ-9 Over the last 2 weeks, how often have you been bothered by any of the following problems? 1. Little interest or pleasure in doing things: not at all 2. Feeling down, depressed, or hopeless: not at all 3. Trouble falling or staying asleep, or sleeping too much: not at all 4. Feeling tired or having little energy: not at all 5. Poor appetite or overeating: not at all 6. Feeling bad about yourself - or that you are a failure or have let yourself or your family down: not at all 7. Trouble concentrating on things, such as reading the newspaper or watching television: not at all 8. Moving or speaking so slowly that other people could have noticed. Or the opposite - being so fidgety or restless that you have been moving around a lot more than usual: not at all 9. Thoughts that you would be better off or of hurting yourself in some way: not at all Total score: 0 Depression Screening Interpretation: Negative Depression Screening Done: Yes 28803 - PHQ-9 Billing: Yes Source: Developed by Drs. Amari Arambula, Adriana Yang, Juan Pablo Aldana and colleagues, with an educational yue from [employer]. Thrive Questionnaire Date Thrive assessed: 08/18/24 I am a: Patient Within the past 12 months, did the food you bought not last and you didn't have the money to get more?: Never true Within the past 12 months, did you worry whether your food would run out before you got money to buy more?: Never true Do you have trouble paying for medicines?: No Do you have trouble getting transportation to medical appointments?: No Do you have trouble paying your heating and electricity bill?: No Do you have trouble taking care of your child, family member or friend?: No Do you have trouble with day-to-day activities such as bathing, preparing meals, shopping, managing finances, etc.?: No Are you currently unemployed and looking for a job?: No Are you interested in more education?: No THRIVE Score: 0 AUDIT C Alcohol Use Questionnaire (AUDIT-C) 1. How often do you have a drink containing alcohol?: Monthly or less 2. How many drinks containing alcohol do you have on a typical day when you are drinking?: 1 or 2 3. How often do you have six or more drinks on one occasion?: Less than monthly Total Score: 2 JESSI-7 AMB Questionnaire JESSI-7 Date JESSI - 7 assessed: 08/18/24 Feeling nervous, anxious, or on edge: 0 = Not at all Not being able to stop or control worryin = Not at all Worrying too much about different things: 0 = Not at all Trouble relaxin = Not at all Being so restless that it is hard to sit still: 0 = Not at all Becoming easily annoyed or irritable: 0 = Not at all Feeling afraid as if something awful might happen: 0 = Not at all Total JESSI-7 score (0-4 normal; 5-9 mild; 10-14 moderate; 15-21 severe): 0 Source: Developed by Drs. Amari Arambula, Adriana Yang, Juan Pablo Aldana and colleagues, with an educational yue from [employer]. Physical exam (Primary Care) Vital Signs: Last Vital Signs Temp 97.8 F 08/18/24 11:08 Pulse 95 08/18/24 11:08 BP 116/70 08/18/24 11:08 Pulse Ox 98 08/18/24 11:08 Oxygen Delivery Method Room Air 08/18/24 11:08 BMI result Body Mass Index 34.4 Tobacco/Smoking Status: Tobacco use Status Tobacco use date assessed 08/18/24 08/18/24 10:58 Patient Tobacco Use Status Former Tobacco user 08/18/24 10:58 Tobacco use type Cigarette 08/18/24 10:58 e-Cigarette/Vaping Use Former Use 08/18/24 10:58 PHQ-9: PHQ-9 Score PHQ-9: Total score 0 08/18/24 11:13 Depression Screening Interpretation: Negative Thrive Assessment: Date of Thrive Assessment Date Thrive assessed 08/18/24 08/18/24 10:58 Coding Level of Care Code New Pt Level 4 (72245) Complex EM visit Add On G2211 Diagnoses Lumbar radiculopathy M54.16 Finger pain, left M79.645 Chronic pain of left knee M25.562; G89.29 Chronicity: chronic High cholesterol E78.00 Cervicalgia M54.2 Neuritis M79.2 Atypical nevi D22.9 Additional Codes PHQ-9 - 57561 - PHQ-9 Billing: Yes ([id number]) Assessment & Plan Assessment & Plan (1) Lumbar radiculopathy: Code(s): M54.16 - Radiculopathy, lumbar region Category: Medical (2) Finger pain, left: Code(s): M79.645 - Pain in left finger(s) Category: Medical (3) Left knee pain: Code(s): M25.562 - Pain in left knee Category: Medical Qualifiers: Chronicity: chronic Qualified Code(s): M25.562 - Pain in left knee; G89.29 - Other chronic pain (4) High cholesterol: Code(s): E78.00 - Pure hypercholesterolemia, unspecified Category: Medical (5) Cervicalgia: Code(s): M54.2 - Cervicalgia Category: Medical (6) Neuritis: Code(s): M79.2 - Neuralgia and neuritis, unspecified Category: Medical (7) Atypical nevi: Code(s): D22.9 - Melanocytic nevi, unspecified Category: Medical Plan 53 year old to establish care past medical surgical social reviewed polyarthralgia xrays labs referral ortho x 2 consider pain management Orders: Orders Complete Blood Count Auto Diff 08/18/24 E78.00 - Pure hypercholesterolemia, unspecified, K21.9 - Gastro-esophageal reflux disease without esophagitis, Z13.0 - Encounter for screening for diseases of the blood and blood-forming organs and certain disorders involving the immune mechanism Rheumatoid Factor 08/18/24 M25.562 - Pain in left knee, M79.645 - Pain in left finger(s) Vitamin B12 and Folate 08/18/24 M79.671 - Pain in right foot, M79.672 - Pain in left foot Comprehensive Met. Panel 08/18/24 E78.00 - Pure hypercholesterolemia, unspecified, K21.9 - Gastro-esophageal reflux disease without esophagitis, Z13.0 - Encounter for screening for diseases of the blood and blood-forming organs and certain disorders involving the immune mechanism Lipid Panel 08/18/24 E78.00 - Pure hypercholesterolemia, unspecified, K21.9 - Gastro-esophageal reflux disease without esophagitis, Z13.0 - Encounter for screening for diseases of the blood and blood-forming organs and certain disorders involving the immune mechanism TSH reflex Free T4 08/18/24 E78.00 - Pure hypercholesterolemia, unspecified, K21.9 - Gastro-esophageal reflux disease without esophagitis, Z13.0 - Encounter for screening for diseases of the blood and blood-forming organs and certain disorders involving the immune mechanism Hemoglobin A1c 08/18/24 E78.00 - Pure hypercholesterolemia, unspecified, K21.9 - Gastro-esophageal reflux disease without esophagitis, Z13.0 - Encounter for screening for diseases of the blood and blood-forming organs and certain disorders involving the immune mechanism XR lumbar spine 2-3V 08/18/24 M54.16 - Radiculopathy, lumbar region, M54.2 - Cervicalgia, M79.2 - Neuralgia and neuritis, unspecified, M79.671 - Pain in right foot, M79.672 - Pain in left foot XR cervical spine 4V 08/18/24 M54.16 - Radiculopathy, lumbar region, M54.2 - Cervicalgia, M79.2 - Neuralgia and neuritis, unspecified, M79.671 - Pain in right foot, M79.672 - Pain in left foot XR Foot Oz 3V 08/18/24 M54.16 - Radiculopathy, lumbar region, M54.2 - Cervicalgia, M79.2 - Neuralgia and neuritis, unspecified, M79.671 - Pain in right foot, M79.672 - Pain in left foot XR hand LT 2V 08/18/24 M79.642 - Pain in left hand Referrals Orthopedics Referral M79.645 - Pain in left finger(s) Orthopedics Referral M25.562 - Pain in left knee Dermatology Referral D22.9 - Melanocytic nevi, unspecified Medications: New doxycycline hyclate 50 mg PO BID 180 caps 0RF duloxetine 60 mg PO DAILY 90 caps 3RF duloxetine (Cymbalta) Take one tab oral once daily for 7 days then increase to 60mg oral daily 30 mg PO DAILY 7 caps 0RF
[2024-08-18 11:08] VITALS: BP 116/70; PULSE 95; TEMP 36.6; O2SAT 98; BMI 34.4
--- OUTSIDE RECORDS SUMMARY | 2024-08-18 13:08 | XMS_ITS | Patient Health Record ---
Author Organization [facility] Address [address] [place] [address] Care Team Providers Care Drafter Automotive Design Name Role Phone Jakob Solomon MD Primary Care Provider Amari Ac Unavailable [phone] Allergies No Known Allergies Reason For Referral [...] W/U Status Risk Notes Problem Esophageal reflux (101420358) Esophageal reflux (K21.9) Active confirmed Problem 690616355 Encounter for screening for malignant neoplasm of colon (Z12.11) Active confirmed Problem 287145554 History of adenomatous polyp of colon (Z86.010) Active confirmed Problem 014808657 Gastroesophageal reflux disease without esophagitis (K21.9) Active confirmed Problem History of polyp of colon (421394409) History of colon polyps (Z86.010) Active confirmed Problem 432588172 Family history o f colon cancer (Z80.0) Active confirmed Problem Bryan esophagus (086289736) 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 Problem Diverticulosis of colon (303908157) Diverticulosis of colon (K57.30) Active confirmed Problem 345598758 Bryan''s esophagus without dysplasia (K22.70) Active confirmed Problem 327370117 Serrated adenoma of colon (D12.6) Active confirmed Problem 764522486 Serrated polyp o f colon (K63.5) Active confirmed Plan Of Treatment Future Test Test Name Order Date UPPER GI ENDOSCOPY 09/30/2013 UPPER GI ENDOSCOPY 09/02/2018 COLONOSCOPY 09/02/2018 COLONOSCOPY 03/01/2019 UPPER GI ENDOSCOPY 08/27/2022 COLONOSCOPY 08/27/2022 Insurance Providers Payer Name Payer Address Payer Phone Subscriber Number Group Number Insured Name Patient Relationship to Insured Coverage Start Date Coverage End Date [facility] [address] [place] [address] [phone] [id number] EDWARD VAZQUEZ Self - patient is the insured Medical (General) History Medical History History ICD Code Colonoscopy 05-17-2007--hyperp lastic polyp, diverticulosis, and internal hemorrhoids Hyperlipidemia Bryan's esophagus and refl ux-- EGD in 12/2010-small HH and small area of Bryan's-no dysplasia Denies VT,DM,CVA,Lung disease,renal dise ase Diverticulitis in 2005 Fibroids [...] Cholecystectomy in [address] Mark Peralta [facility] Hysterectomy 12/2018
== END 2024-08-18 11:33 | disposition home or self-care (01) ==
LOC: HO.HMCHD 11:04
PROVIDERS: PCP Internal Medicine; Visit Provider Internal Medicine
DX: M54.16 Radiculopathy, lumbar region (principal); M79.645 Pain in left finger(s); M25.562 Pain in left knee; G89.29 Other chronic pain; E78.00 Pure hypercholesterolemia, unspecified; M54.2 Cervicalgia; D22.9 Melanocytic nevi, unspecified

== ENCOUNTER 2024-08-18 11:37 | Outpatient (REF) | payer BC, SELFPAY ==
[2024-08-18 12:43] LABS: MANUAL DIFF FLAG NO
[2024-08-18 13:12] LABS: Basophils Percent Auto 0.4 % (0-2); Eosinophils Absolute Auto 0.5 X10*3/uL (0.0-0.4); Eosinophils Percent Auto 6.5 % (0-4); Hematocrit 43.6 % (37.0-47.0); Hemoglobin 14.7 g/dl (12.0-16.0); Imm Gran Abs Auto 0.02 X10*3/uL (0.00-0.03); Imm Gran Pct Auto 0.3 % (0.0-0.4); Lymphocytes Absolute Auto 2.4 X10*3/uL (1.2-4.9); Lymphocytes Percent Auto 31.6 % (20-40); Mean Corpuscular HGB Conc 33.7 g/dl (31.0-35.0); Mean Corpuscular Hemoglobin 28.5 pg (27.0-33.0); Mean Corpuscular Volume 84.7 fL (80.0-98.0); Mean Platelet Volume 10.1 fL (9.4-12.3); Monocytes Absolute Auto 0.6 X10*3/uL (0.1-1.2); Neutrophils Percent Auto 53.2 % (45-73); Platelet Count 313 X10*3/uL (160-400); Red Blood Count 5.15 X10*6/uL (4.20-5.50); White Blood Count 7.5 X10*3/uL (4.8-10.8)
[2024-08-18 13:16] LABS: Estimated Average Glucose 117 mg/dL; Hemoglobin A1C 151.5776 umol/L; Hemoglobin A1c % 5.7 % (<6.0)
[2024-08-18 13:26] LABS: Rheumatoid Factor < 13.0 IU/mL (<15.0)
[2024-08-18 13:29] LABS: Alanine Aminotransferase 29 U/L (0-31); Albumin Level 4.6 g/dL (3.5-5.0); Alkaline Phosphatase 77 U/L (39-117); Anion Gap 11 (12-20); Aspartate Amino Transferase 25 U/L (5-31); Bilirubin Total 0.4 mg/dL (0.0-1.0); Blood Urea Nitrogen 11 mg/dL (9-16); Calcium 9.9 mg/dL (8.4-10.2); Carbon Dioxide 29 mmol/L (22-29); Chloride 105 mmol/L (96-108); Cholesterol 204 mg/dL (<200); Estimated Glomerular Filt Rate > 60; Glucose Random 97 mg/dL (60-115); HDL Cholesterol 64 mg/dL (>40); LDL Cholesterol Calculated 115 mg/dL (<100); Potassium 3.8 mmol/L (3.3-5.1); Sodium 141 mmol/L (135-145); Total Protein 7.7 g/dL (6.5-8.0); Triglycerides 125 mg/dL (<150)
[2024-08-18 13:45] LABS: TSH reflex Free T4 1.19 uIU/mL (0.32-4.0)
[2024-08-18 13:54] LABS: Folate 14.7 ng/mL (> or = 4.0); Vitamin B12 1126 pg/mL (200-900)
== END 2024-08-18 11:38 | disposition home or self-care (01) ==
LOC: HO.10HDL 11:37
PROVIDERS: Visit Provider Internal Medicine
DX: Z13.0 Encounter for screening for diseases of the blood and blood-forming organs and certain disorders involving the immune mechanism (principal); E78.00 Pure hypercholesterolemia, unspecified; K21.9 Gastro-esophageal reflux disease without esophagitis; M25.562 Pain in left knee; M79.645 Pain in left finger(s); M79.671 Pain in right foot; M79.672 Pain in left foot; Z13.1 Encounter for screening for diabetes mellitus
CPT/HCPCS: 36415; 80053; 80061; 82607; 82746; 83036; 84443; 85025; 86431

== ENCOUNTER → 2024-08-18 12:01 | Outpatient (BNV) | payer OTHER, BC, SELFPAY | PROVIDERS: PCP Internal Medicine; Visit Provider Radiology Diagnostic Radiology | DX: M50.30 Other cervical disc degeneration, unspecified cervical region (principal); M51.369 Other intervertebral disc degeneration, lumbar region without mention of lumbar back pain or lower extremity pain; M79.642 Pain in left hand; M54.16 Radiculopathy, lumbar region | CPT/HCPCS: 72050; 72100; 73120; 73630 ==

== ENCOUNTER 2024-09-02 08:57 | Outpatient (AMB) | payer BC, SELFPAY ==
[2024-09-02 08:52] VITALS: BP 120/76; PULSE 103; TEMP 36.3; O2SAT 99; BMI 34.2
--- NOTE | 2024-09-02 08:52 | A.OFFPC_ITS ---
Vital Signs 09/02/24 08:52 Height 5 ft 3 in Weight 193 lb BMI 34.2 BP 120/76 Blood Pressure Location Rt brachial Position Sitting Pulse 103 H Pulse Source Pulse Oximeter Temp 97.3 F Temp Source Axillary Pulse Oximetry (%) 99 Oxygen Delivery Method Room Air Intake Visit Reasons: Lump/mass Casino Worker Required: No Accompanied by: Self / Same As Patient Allergies No Known Allergies Allergy (Verified 09/02/24 08:53) Tobacco use date assessed: 09/02/24 Dental Screening Dental Screen Date: 09/02/24 Did you have a dental visit in the last 12 months?: Yes Did you have a dental problem in the last 6 months where you did not have access to dental care?: No HPI HPI Comments History of Present Illness Details 53 year old female with a past medical h istory of left knee pain, nephrolithiasis, GERD, hyperlipidemia presenting for left arm lump 1 week ago developed pain lump under the left armpit. no exudate. no fevers. It is a large multihead boil. She has been taking low dose doxy for scalp folliculitis. Have increased to full dose today. referred to gen surgery. She will go over today to see if they have any cancellations on todays schedule aware that otherwise she will be scheduled in the near future Multiple complaints last visit -Left 5th finger DIP pain and cyst-refer red to orthopedics -Bilateral foot pain burning after sitti ng or standing. Chronic low back pain -Tingling, shoot pain in the head -Pimple like lesions of the scalp GERD: on omeprazole CV: on simvastatin Mammo 05/2024 Colonoscopy 11/2022 ROS see HPI PHYSICAL EXAM: GENERAL: Alert and oriented x 3. NAD EYES: EOMI. Anicteric. HENT: Moist mucous membranes. No scleral icterus. No cervical lymphadenopathy. LUNGS: Clear to auscultation bilaterally. CARDIOVASCULAR: Regular rate and rhythm. No murmur. No JVD. ABDOMEN: Soft, non-tender +bs EXTREMITIES: No edema. Non-tender. SKIN: Boil under the left armpit NEUROLOGIC: No focal neurological deficits. CN II-XII grossly intact PSYCHIATRIC: Cooperative. Appropriate mood and affect [facility] Medical History Left knee sprain High cholesterol Chronic GERD Surgical History H/O cystoscopy Tubal ligation status H/O endoscopy H/O colonoscopy (~11/24/22) History of back surgery History of cholecystectomy H/O: hysterectomy H/O tooth extraction Family History Mother No problems noted. Father No problems noted. Social History Housing: Condominium Are you a primary managed care provider to a significant other at home: No Do you presently have visiting nurse or other home services: No Patient Tobacco Use Status: Former Tobacco user Tobacco use type: Cigarette Years Smoked: 25 e-Cigarette/Vaping Use: Former Use service: No Current occupational status: employed Cognitive needs: No Hearing needs: No Vision needs: Yes (reading glasses) Questionnaire PHQ-9 Over the last 2 weeks, how often have you been bothered by any of the following problems? 1. Little interest or pleasure in doing things: not at all 2. Feeling down, depressed, or hopeless: not at all 3. Trouble falling or staying asleep, or sleeping too much: not at all 4. Feeling tired or having little energy: not at all 5. Poor appetite or overeating: not at all 6. Feeling bad about yourself - or that you are a failure or have let yourself or your family down: not at all 7. Trouble concentrating on things, such as reading the newspaper or watching television: not at all 8. Moving or speaking so slowly that other people could have noticed. Or the opposite - being so fidgety or restless that you have been moving around a lot more than usual: not at all 9. Thoughts that you would be better off or of hurting yourself in some way: not at all Total score: 0 Source: Developed by Drs. Amari Arambula, Adriana Yang, Juan Pablo Aldana and colleagues, with an educational yue from [employer]. Thrive Questionnaire Date Thrive assessed: 09/02/24 I am a: Patient Within the past 12 months, did the food you bought not last and you didn't have the money to get more?: Never true Within the past 12 months, did you worry whether your food would run out before you got money to buy more?: Never true Do you have trouble paying for medicines?: No Do you have trouble getting transportation to medical appointments?: No Do you have trouble paying your heating and electricity bill?: No Do you have trouble taking care of your child, family member or friend?: No Do you have trouble with day-to-day activities such as bathing, preparing meals, shopping, managing finances, etc.?: No Are you currently unemployed and looking for a job?: No Are you interested in more education?: No THRIVE Score: 0 AUDIT C Alcohol Use Questionnaire (AUDIT-C) 1. How often do you have a drink containing alcohol?: Monthly or less 2. How many drinks containing alcohol do you have on a typical day when you are drinking?: 1 or 2 3. How often do you have six or more drinks on one occasion?: Less than monthly Total Score: 2 JESSI-7 AMB Questionnaire JESSI-7 Date JESSI - 7 assessed: 09/02/24 Feeling nervous, anxious, or on edge: 0 = Not at all Not being able to stop or control worryin = Not at all Worrying too much about different things: 0 = Not at all Trouble relaxin = Not at all Being so restless that it is hard to sit still: 0 = Not at all Becoming easily annoyed or irritable: 0 = Not at all Feeling afraid as if something awful might happen: 0 = Not at all Total JESSI-7 score (0-4 normal; 5-9 mild; 10-14 moderate; 15-21 severe): 0 Source: Developed by Drs. Amari Arambula, Adriana Yang, Juan Pablo Aldana and colleagues, with an educational yue from [employer]. Physical exam (Primary Care) Tobacco/Smoking Status: Tobacco use Status Tobacco use date assessed 09/02/24 09/02/24 08:54 Patient Tobacco Use Status Former Tobacco user 09/02/24 08:54 Tobacco use type Cigarette 09/02/24 08:54 e-Cigarette/Vaping Use Former Use 09/02/24 08:54 PHQ-9: PHQ-9 Score PHQ-9: Total score 0 09/02/24 09:02 Thrive Assessment: Date of Thrive Assessment Date Thrive assessed 09/02/24 09/02/24 08:54 Coding Level of Care Code Est Pt Level 4 (30980) Diagnoses Abscess L02.91 Assessment & Plan Assessment & Plan (1) Abscess: Code(s): L02.91 - Cutaneous abscess, unspecified Category: Medical Plan axilarry abcess no fevers referral to general surgery one week of full strength doxycycline Will need likely atleast I & D Orders: Referrals General Surgery Referral L02.91 - Cutaneous abscess, unspecified Medications: New doxycycline hyclate 100 mg PO BID 14 tabs 0RF 7 days
--- OUTSIDE RECORDS SUMMARY | 2024-09-02 09:06 | XMS_ITS | Patient Health Record ---
Author Organization [facility] Address [address] [place] [address] Care Team Providers Care Criminal Intelligence Specialist Name Role Phone Jakob Solomon MD Primary Care Provider Amari Ac Unavailable [phone] Allergies No Known Allergies Reason For Referral [...] W/U Status Risk Notes Problem Esophageal reflux (261808484) Esophageal reflux (K21.9) Active confirmed Problem 212784882 Encounter for screening for malignant neoplasm of colon (Z12.11) Active confirmed Problem 847296714 History of adenomatous polyp of colon (Z86.010) Active confirmed Problem 248208390 Gastroesophageal reflux disease without esophagitis (K21.9) Active confirmed Problem History of polyp of colon (118179217) History of colon polyps (Z86.010) Active confirmed Problem 041980373 Family history o f colon cancer (Z80.0) Active confirmed Problem Bryan esophagus (115590286) 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 Problem Diverticulosis of colon (048188830) Diverticulosis of colon (K57.30) Active confirmed Problem 896342881 Bryan''s esophagus without dysplasia (K22.70) Active confirmed Problem 394964968 Serrated adenoma of colon (D12.6) Active confirmed Problem 554812473 Serrated polyp o f colon (K63.5) Active confirmed Plan Of Treatment Future Test Test Name Order Date UPPER GI ENDOSCOPY 09/30/2013 UPPER GI ENDOSCOPY 09/02/2018 COLONOSCOPY 09/02/2018 COLONOSCOPY 03/01/2019 UPPER GI ENDOSCOPY 08/27/2022 COLONOSCOPY 08/27/2022 Insurance Providers Payer Name Payer Address Payer Phone Subscriber Number Group Number Insured Name Patient Relationship to Insured Coverage Start Date Coverage End Date [facility] [address] [place] [address] [id number] EDWARD VAZQUEZ Self - patient is the insured Medical (General) History Medical History History ICD Code Colonoscopy 05-17-2007--hyperp lastic polyp, diverticulosis, and internal hemorrhoids Hyperlipidemia Bryan's esophagus and refl ux-- EGD in 12/2010-small HH and small area of Bryan's-no dysplasia Denies PR,DM,CVA,Lung disease,renal dise ase Diverticulitis in 2005 Fibroids [...] Cholecystectomy [place] [address] Mark Peralta [facility] Hysterectomy 12/2018
== END 2024-09-02 09:21 | disposition home or self-care (01) ==
LOC: HO.HMCHD 08:58
PROVIDERS: PCP Internal Medicine; Visit Provider Internal Medicine
DX: L02.91 Cutaneous abscess, unspecified (principal)

== ENCOUNTER → 2024-09-02 08:57 | Outpatient (BNVA) | payer BC, SELFPAY | PROVIDERS: PCP Internal Medicine; Visit Provider Internal Medicine ==

== ENCOUNTER 2024-09-29 08:26 | Outpatient (AMB) | payer BC, SELFPAY ==
--- OUTSIDE RECORDS SUMMARY | 2024-09-29 08:32 | XMS_ITS | Patient Health Record ---
Author Organization [facility] Address [address] [place] [address] Care Team Providers Care Delivery Truck Driver Heavy Name Role Phone Juanito (RETIRED) Jakob GONZALEZ Primary Care Provide r Unavailable Amari Schmidt Unavailable [phone] Allergies No Known Allergies Reason For Referral [...] W/U Status Risk Notes Problem Esophageal reflux (668044168) Esophageal reflux (K21.9) Active confirmed Problem 480689018 Encounter for screening for malignant neoplasm of colon (Z12.11) Active confirmed Problem 319475322 History of adenomatous polyp of colon (Z86.010) Active confirmed Problem 403609070 Gastroesophageal reflux disease without esophagitis (K21.9) Active confirmed Problem History of polyp of colon (698511717) History of colon polyps (Z86.010) Active confirmed Problem 460723000 Family history o f colon cancer (Z80.0) Active confirmed Problem Bryan esophagus (892620365) 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 Problem Diverticulosis o f colon (K57.30) Active confirmed Problem 873330267 Bryan''s esoph corinne without dysplasia (K22.70) Active confirmed Problem 726051290 Serrated adenoma of colon (D12.6) Active confirmed Problem 770141026 Serrated polyp o f colon (K63.5) Active confirmed Plan Of Treatment Future Test Test Name Order Date UPPER GI ENDOSCOPY 09/30/2013 UPPER GI ENDOSCOPY 09/02/2018 COLONOSCOPY 09/02/2018 COLONOSCOPY 03/01/2019 UPPER GI ENDOSCOPY 08/27/2022 COLONOSCOPY 08/27/2022 Insurance Providers Payer Name Payer Address Payer Phone Subscriber Number Group Number Insured Name Patient Relationship to Insured Coverage Start Date Coverage End Date [facility] [address] [place] [address] [phone] [id number] EDWARD VAZQUEZ Self - patient is the insured Medical (General) History Medical History History ICD Code Colonoscopy 05-17-2007--hyperp lastic polyp, diverticulosis, and internal hemorrhoids Hyperlipidemia Bryan's esophagus and refl ux-- EGD in 12/2010-small HH and small area of Bryan's-no dysplasia Denies [place],DM,CVA,Lung disease,renal dise ase Diverticulitis in 2005 Fibroids [...] Cholecystectomy in [address] Mark Peralta [facility] Hysterectomy 12/2018
--- NOTE | 2024-09-29 08:41 | MHC.OFFVIS ---
Vital Signs 09/29/24 08:46 Height 5 ft 3 in Weight 195 lb BMI 34.5 BP 132/76 Blood Pressure Location Lt brachial Position Sitting Intake Visit Reasons: axillary abscess, boil Intake Note: Pt states, I had a cyst under my arm that got as big as a golf ball but it's smaller now. c/o drainage, pain Medical Instrument Cable Fabricator Required: No Allergies No Known Allergies Allergy (Verified 09/29/24 08:43) Medication List - Last Reconciled 09/29/24 by Jakob Diaz MD doxycycline hyclate 100 mg PO BID 7 days duloxetine (Cymbalta) 30 mg PO DAILY [fiber 1 tab PO DIRECTED] ibuprofen 800 mg PO Q8H [multivitamin 1 tab PO DIRECTED] omeprazole 20 mg PO DAILY 90 days pyridoxine (vitamin B6) 100 mg PO DAILY 90 days simvastatin 40 mg PO DAILY HPI HPI axillary abscess, boil: Details: 54-year-old female referred for a cyst on the left axilla. She says that about 1 month ago, she woke up with a golf ball size swelling on the left axilla. This has very tender then. She says that did was drained spontaneously. However, she says that there has been persistent scanty drainage in the area along with some residual swelling. She therefore wants this area removed She says she had a similar episode about 2 years ago. [facility] Medical History (Updated 09/29/24 @ 08:53 by Jakob Diaz MD) Epidermal cyst Left knee sprain High cholesterol Chronic GERD Surgical History H/O cystoscopy Tubal ligation status H/O endoscopy H/O colonoscopy (~11/24/22) History of back surgery History of cholecystectomy H/O: hysterectomy H/O tooth extraction Family History Mother No problems noted. Father No problems noted. Social History Housing: Condominium Are you a primary geriatric personal care aide to a significant other at home: No Do you presently have visiting nurse or other home services: No Patient Tobacco Use Status: Former Tobacco user Tobacco use type: Cigarette Years Smoked: 25 e-Cigarette/Vaping Use: Former Use service: No Current occupational status: employed Cognitive needs: No Hearing needs: No Vision needs: Yes (reading glasses) Review of Systems Const Denies chills and Denies fever(s) Card Denies chest pain, Denies dyspnea and Denies dyspnea on exertion Resp Denies cough, Denies dyspnea and Denies dyspnea on exertion GI Denies hematochezia and Denies change in bowel habits Denies hematuria Musc Denies back pain and Denies limited range of motion Neuro Denies focal weakness and Denies convulsions Psych Denies depression and Denies mood swings Physical Exam Vital Signs: Last Vital Signs BP 132/76 09/29/24 08:46 BMI result Body Mass Index 34.5 Const General: comfortable and no acute distress Orientation/consciousness: patient oriented x3 Neck Neck: Yes no lymphadenopathy Resp Auscultation: clear to auscultation bilaterally Cardio Rhythm: regular rhythm GI Palpation (GI): Soft to palpation, nontender and no guarding Neuro General: patient oriented x3 Extrem Other: Left axilla with a 1.5 cm induration, no fluctuance or redness, consistent with a ruptured epidermal cyst Assessment & Plan Assessment & Plan (1) Epidermal cyst: Code(s): L72.0 - Epidermal cyst Category: Medical Plan: She has this epidermal cyst in the left axilla as described above. She wants this removed. I explained the technique of excision under local anesthesia. I reviewed the risks including but not limited to bleeding infections, as well as the benefits and alternatives and she says she understands and wants to proceed. I also explained to her what to expect postoperatively. This will be done in the office under local anesthesia on her next visit. Coding Level of Care Code New Pt Level 3 (03967) Diagnoses Epidermal cyst L72.0
[2024-09-29 08:46] VITALS: BP 132/76; BMI 34.5
== END 2024-09-29 08:43 | disposition home or self-care (01) ==
LOC: HO.HGS 08:27
PROVIDERS: PCP Internal Medicine; Visit Provider Surgery
DX: L72.0 Epidermal cyst (principal)
CPT/HCPCS: 99203

== ENCOUNTER 2024-10-17 08:09 | Outpatient (REF) | payer BC, SELFPAY ==
--- OUTSIDE RECORDS SUMMARY | 2024-10-18 08:15 | XMS_ITS | Patient Health Record ---
Author Organization [facility] Address [address] [place] [address] Care Team Providers Care Chain Mender Name Role Phone Juanito (RETIRED) Jakob GONZALEZ Primary Care Provide r Unavailable Amari Schmidt Unavailable [phone] Allergies No Known Allergies Reason For Referral [...] W/U Status Risk Notes Problem Esophageal reflux (821349982) Esophageal reflux (K21.9) Active confirmed Problem 817633089 Encounter for screening for malignant neoplasm of colon (Z12.11) Active confirmed Problem 622207152 History of adenomatous polyp of colon (Z86.010) Active confirmed Problem 205948867 Gastroesophageal reflux disease without esophagitis (K21.9) Active confirmed Problem History of polyp of colon (323946611) History of colon polyps (Z86.010) Active confirmed Problem 304717328 Family history o f colon cancer (Z80.0) Active confirmed Problem Bryan esophagus (001828622) 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 Problem Diverticulosis of colon (892899851) Diverticulosis of colon (K57.30) Active confirmed Problem 557378758 Bryan''s esophagus without dysplasia (K22.70) Active confirmed Problem 323806594 Serrated adenoma of colon (D12.6) Active confirmed Problem 823192067 Serrated polyp o f colon (K63.5) Active confirmed Plan Of Treatment Future Test Test Name Order Date UPPER GI ENDOSCOPY 09/30/2013 UPPER GI ENDOSCOPY 09/02/2018 COLONOSCOPY 09/02/2018 COLONOSCOPY 03/01/2019 UPPER GI ENDOSCOPY 08/27/2022 COLONOSCOPY 08/27/2022 Insurance Providers Payer Name Payer Address Payer Phone Subscriber Number Group Number Insured Name Patient Relationship to Insured Coverage Start Date Coverage End Date [facility] [address] [place] [address] [phone] [id number] EDWARD VAZQUEZ Self - patient is the insured Medical (General) History Medical History History ICD Code Colonoscopy 05-17-2007--hyperp lastic polyp, diverticulosis, and internal hemorrhoids Hyperlipidemia Bryan's esophagus and refl ux-- EGD in 12/2010-small HH and small area of Bryan's-no dysplasia Denies [place],DM,CVA,Lung disease,renal dise ase Diverticulitis in 2005 Fibroids [...] in [address] Mark Peralta [facility] Hysterectomy 12/2018
== END 2024-10-17 08:10 | disposition home or self-care (01) ==
LOC: HO.HOSX 08:09
DX: Z13.89 Encounter for screening for other disorder (principal)

== ENCOUNTER 2024-10-17 15:24 | Outpatient (AMB) | payer BC, SELFPAY ==
--- NOTE | 2024-10-17 15:25 | A.OFFVIS_ITS ---
Vital Signs 10/17/24 15:26 Height 5 ft 3 in Weight 195 lb BMI 34.5 Handedness Right Intake Visit Reasons: PLASTICS FABRICATOR-Lt hand 5th digit pain Intake Note: Marni is a 54 year old right hand dominant female who presents today as a new patient for evaluation of left small finger pain. Patient states her finger began bothering her when the lump started growing about 3 months ago. She states there are more growing on different DIP joints. Denies numbness, tingling, finger locking. She is taking Tylenol Arthritis with minimal relief. She has not seen a newspaper clipper. Allergies No Known Allergies Allergy (Verified 10/17/24 15:26) HPI HPI PLASTICS FABRICATOR-Lt hand 5th digit pain: Details: Marni is a 54 year old right hand dominant female who presents today as a new patient for evaluation of left small finger pain. Patient states her finger began bothering her when the lump started growing about 3 months ago. She states there are more growing on different DIP joints. Denies numbness, tingling, finger locking. She is taking Tylenol Arthritis with minimal relief. She has not seen a newspaper clipper. [facility] Medical History (Updated 10/24/24 @ 08:06 by MIKE Pennington) Epidermal cyst Left knee sprain High cholesterol Chronic GERD Surgical History H/O cystoscopy Tubal ligation status H/O endoscopy H/O colonoscopy (~11/24/22) History of back surgery History of cholecystectomy H/O: hysterectomy H/O tooth extraction Family History Mother No problems noted. Father No problems noted. Social History Housing: Condominium Are you a primary aged or disabled care worker to a significant other at home: No Do you presently have visiting nurse or other home services: No Patient Tobacco Use Status: Former Tobacco user Tobacco use type: Cigarette Years Smoked: 25 e-Cigarette/Vaping Use: Former Use service: No Current occupational status: employed Cognitive needs: No Hearing needs: No Vision needs: Yes (reading glasses) Review of Systems Const All systems reviewed & are unremarkable except as noted in HPI and below Physical Exam Vital Signs: BMI result Body Mass Index 34.5 Extrem Other: Patient is alert, oriented, and in no acute distress. Neuro: Normal sensation of the tips of all digits of bilateral hand at this time Vascular: Cap refill brisk Pain: No tenderness to palpation about bilateral hands Discomfort with range of motion of the DIP joints of all digits, particularly in the left small finger ROM: Patient has very limited active flexion of the DIP joint of the left small finger Patient is a also has limited active extension beyond where her finger is held at baseline Skin: No lacerations or abrasions. General: Diffuse Heberden's nodes noted of the digits of bilateral hands No ecchymosis, erythema, or evidence of infection. Psych: Appears grossly normal Affect normal Attitude cooperative Results Reviewed Results Reviewed: X-rays obtained on 08/17/2024 and independently reviewed by me, Moe Saucedo, demonstrate diffuse osteoarthritis of the digits of bilateral hands, worst in the left small finger DIP joint. Assessment & Plan Assessment & Plan (1) Osteoarthritis of hands, bilateral: Code(s): M19.041 - Primary osteoarthritis, right hand; M19.042 - Primary osteoarthritis, left hand Category: Medical Plan 1. Osteoarthritis of bilateral hands Worst in the DIP joint of the left small finger Severely limited range of motion physical exam, patient's arm then able to actively flex approximately 5-10 degrees beyond where her joint is held at rest Patient is educated about this condition Patient is educated about the treatment options available At this time, patient is informed that our treatment options are fairly limited for IP joint arthritis of the hands, however in her case given her extremely limited range of motion of her left small finger DIP joint I feel that arthrodesis is a reasonable option for pain control at this time Patient is referred to Dr. Ramesh for surgical consult and discussion of arthrodesis of left small finger DIP joint Patient is advised on conservative pain management measures Patient understands this in his amenable to this plan Follow-up with Dr. Ramesh for surgical consult, sooner with any acute concerns Coding Level of Care Code New Pt Level 3 (55358) Diagnoses Osteoarthritis of hands, bilateral M19.041; M19.042
[2024-10-17 15:26] VITALS: BMI 34.5
--- OUTSIDE RECORDS SUMMARY | 2024-10-17 15:26 | XMS_ITS | Patient Health Record ---
Author Organization [facility] Address [address] [place] [address] Care Team Providers Care Ride Attendant Name Role Phone Juanito (RETIRED) Jakob GONZALEZ Primary Care Provide r Unavailable Amari Schmidt Unavailable [phone] Allergies No Known Allergies Reason For Referral [...] W/U Status Risk Notes Problem Esophageal reflux (717385220) Esophageal reflux (K21.9) Active confirmed Problem 157716804 Encounter for screening for malignant neoplasm of colon (Z12.11) Active confirmed Problem 895521730 History of adenomatous polyp of colon (Z86.010) Active confirmed Problem 636802223 Gastroesophageal reflux disease without esophagitis (K21.9) Active confirmed Problem History of polyp of colon (995788139) History of colon polyps (Z86.010) Active confirmed Problem 095238576 Family history o f colon cancer (Z80.0) Active confirmed Problem Bryan esophagus (197619173) 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 Problem Diverticulosis of colon (340095693) Diverticulosis of colon (K57.30) Active confirmed Problem 820718169 Bryan''s esophagus without dysplasia (K22.70) Active confirmed Problem 043303107 Serrated adenoma of colon (D12.6) Active confirmed Problem 790795552 Serrated polyp o f colon (K63.5) Active confirmed Plan Of Treatment Future Test Test Name Order Date UPPER GI ENDOSCOPY 09/30/2013 UPPER GI ENDOSCOPY 09/02/2018 COLONOSCOPY 09/02/2018 COLONOSCOPY 03/01/2019 UPPER GI ENDOSCOPY 08/27/2022 COLONOSCOPY 08/27/2022 Insurance Providers Payer Name Payer Address Payer Phone Subscriber Number Group Number Insured Name Patient Relationship to Insured Coverage Start Date Coverage End Date [facility] [address] [place] [address] [phone] [id number] EDWARD VAZQUEZ Self - patient is the insured Medical (General) History Medical History History ICD Code Colonoscopy 05-17-2007--hyperp lastic polyp, diverticulosis, and internal hemorrhoids Hyperlipidemia Bryan's esophagus and refl ux-- EGD in 12/2010-small HH and small area of Bryan's-no dysplasia Denies [place],DM,CVA,Lung disease,renal dise ase Diverticulitis in 2005 Fibroids [...] Cholecystectomy in [address] Mark Peralta [facility] Hysterectomy 12/2018
== END 2024-10-17 15:45 | disposition home or self-care (01) ==
LOC: HO.HOS 15:25
PROVIDERS: PCP Internal Medicine
DX: M19.041 Primary osteoarthritis, right hand (principal); M19.042 Primary osteoarthritis, left hand
CPT/HCPCS: 99203

== ENCOUNTER 2024-11-02 14:53 | Outpatient (AMB) | payer BC, SELFPAY ==
[2024-11-02 15:03] VITALS: BP 127/79; PULSE 98; BMI 34.7
--- NOTE | 2024-11-02 15:03 | A.OFFVIS_ITS ---
Vital Signs 11/02/24 15:03 Height 5 ft 3 in Weight 196 lb BMI 34.7 BP 127/79 Blood Pressure Location Rt brachial Position Sitting Pulse 98 Intake Visit Reasons: excision (L) axilla cyst Intake Note: Patient here for excision of cyst on left axilla. Electronic Resources Librarian Required: No Accompanied by: Self / Same As Patient Allergies No Known Allergies Allergy (Verified 11/02/24 15:04) HPI HPI excision (L) axilla cyst: Details: She is here for excision of a cyst on the left axilla. [facility] Medical History (Updated 10/24/24 @ 08:06 by MIKE Pennington) Epidermal cyst Left knee sprain High cholesterol Chronic GERD Surgical History H/O cystoscopy Tubal ligation status H/O endoscopy H/O colonoscopy (~11/24/22) History of back surgery History of cholecystectomy H/O: hysterectomy H/O tooth extraction Family History Mother No problems noted. Father No problems noted. Social History Housing: Condominium Are you a primary career advisor to a significant other at home: No Do you presently have visiting nurse or other home services: No Patient Tobacco Use Status: Former Tobacco user Tobacco use type: Cigarette Years Smoked: 25 e-Cigarette/Vaping Use: Former Use service: No Current occupational status: employed Cognitive needs: No Hearing needs: No Vision needs: Yes (reading glasses) Physical Exam Vital Signs: Last Vital Signs Pulse 98 11/02/24 15:03 BP 127/79 11/02/24 15:03 BMI result Body Mass Index 34.7 Office Procedures Excision Details: She was in reclining position. The left arm was abducted to expose the left axilla. Was note of a cystic induration about 1 cm in diameter. This area was prepped and draped. Lidocaine 1% was used for local anesthesia. I made an elliptical incision of the skin surrounding this induration with a blade 15. This was carried down through the full-thickness of the skin and subcutaneous tissue to excise this entire indurated area. This was sent as a specimen. I closed the incision with full-thickness nylon 3-0 simple interrupted sutures. Dressings were applied and the procedure was completed. She tolerated the procedure well. There were no immediate complications. 99125-xjyru/arms/legs 0.6-1cm Procedure code (CPT) selection complete Assessment & Plan Assessment & Plan (1) Epidermal cyst: Code(s): L72.0 - Epidermal cyst Category: Medical Plan: Excision was done under local anesthesia in the office. She was given wound care instructions. I will see her in the office in about 2 weeks to remove the sutures. Orders: Orders Surgical 11/02/24 L72.0 - Epidermal cyst Coding Level of Care Code Procedure Only Diagnoses Epidermal cyst L72.0 CPT Codes Trunk/Arms/Legs - CPT: 25454-gqdaq/arms/legs 0.6-1cm ([id number])
--- OUTSIDE RECORDS SUMMARY | 2024-11-02 15:52 | XMS_ITS | Patient Health Record ---
Author Organization [facility] Address [address] [place] [address] Care Team Providers Care Bilingual Sales Consultant Name Role Phone Juanito (RETIRED) Jakob GONZALEZ Primary Care Provide r Unavailable Amari Schmidt Unavailable [phone] Allergies No Known Allergies Reason For Referral [...] W/U Status Risk Notes Problem Esophageal reflux (122539021) Esophageal reflux (K21.9) Active confirmed Problem 871328805 Encounter for screening for malignant neoplasm of colon (Z12.11) Active confirmed Problem 881528022 History of adenomatous polyp of colon (Z86.010) Active confirmed Problem 625668598 Gastroesophageal reflux disease without esophagitis (K21.9) Active confirmed Problem History of polyp of colon (181317057) History of colon polyps (Z86.010) Active confirmed Problem 425067483 Family history o f colon cancer (Z80.0) Active confirmed Problem Bryan esophagus (732801365) 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 Problem Diverticulosis of colon (954365504) Diverticulosis of colon (K57.30) Active confirmed Problem 840678220 Bryan''s esophagus without dysplasia (K22.70) Active confirmed Problem 118177198 Serrated adenoma of colon (D12.6) Active confirmed Problem 395810990 Serrated polyp o f colon (K63.5) Active confirmed Plan Of Treatment Future Test Test Name Order Date UPPER GI ENDOSCOPY 09/30/2013 UPPER GI ENDOSCOPY 09/02/2018 COLONOSCOPY 09/02/2018 COLONOSCOPY 03/01/2019 UPPER GI ENDOSCOPY 08/27/2022 COLONOSCOPY 08/27/2022 Insurance Providers Payer Name Payer Address Payer Phone Subscriber Number Group Number Insured Name Patient Relationship to Insured Coverage Start Date Coverage End Date [facility] [address] [place] [address] [id number] EDWARD VAZQUEZ Self - patient is the insured Medical (General) History Medical History History ICD Code Colonoscopy 05-17-2007--hyperp lastic polyp, diverticulosis, and internal hemorrhoids Hyperlipidemia Bryan's esophagus and refl ux-- EGD in 12/2010-small HH and small area of Bryan's-no dysplasia Denies [place],DM,CVA,Lung disease,renal dise ase Diverticulitis in 2005 Fibroids [...] Cholecystectomy in [address] Mark Peralta [facility] Hysterectomy 12/2018
--- OUTSIDE RECORDS SUMMARY | 2024-11-02 15:52 | XMS_ITS | Clinical Summary ---
Author Organization Nurys Sánchez [facility] Address [address] [place] [address] Care Team Providers Care Chemical Processing Laborer Name Role Phone Unknown, Provider MD Primary Care Provider Unava ilable Allergies No known active allergies Medications simvastatin (ZOCOR) 20 MG tablet Take 1 tablet (20 mg total) by mouth at bedtime. Active multivitamin-ir on-folic acid 18-400 mg-mcg Tab Take by mouth daily. Active omeprazole (PriLOSEC) [address] capsule Take 1 capsule (10 mg total) by mouth daily. Active tamsulosin (FLOMAX) 0.4 mg cap 24 hr capsule Take 1 capsule (0.4 mg total) by mouth at bedtime as needed (stent pain) for up to 60 days. 30 capsule 1 10/10/2023 Active phenazopyridine (PYRIDIUM) 200 MG tablet Take 1 tablet (200 mg total) by mouth 3 times a day as needed (bladder pain). 15 tablet 1 10/10/2023 Active Active Problems Problem Noted Date Diagnosed Date Hydronephrosis 10/10/2023 Vomiting 10/10/2023 Flank pain 10/10/2023 Stone in kidney 10/10/2023 Obesity (BMI 30-39.9) 10/10/2023 GERD (gastroesophageal reflux disease) Disorders of gallbladder, bi liary tract and pancreas in diseases classified elsewhere 10/10/2023 Family History Medical History Relation Comments Nephrolithiasis Mother Relation Status Comments Father Mother Alive Social History Tobacco Use Types Packs/Day Years Used Date Smoking Tobacco: Never Smokeless Tobacco: Never Tobacco Cessation:Counseling Given: No Alcohol Use Standard Drinks/Week Comments Yes 1 (1 standard drink = 0.6 oz pur e alcohol) [facility] Utilities Answer Date Recorded In the past 12 months has th e electric, gas, oil, or water company threatened to shut off services in your home? No 10/10/2023 Humiliation, Afraid, Rape, and Kick questionnair e Answer Date Recorded Within the last year, have y ou been afraid of your partner or ex-partner? No 10/10/2023 Emotionally Abused Not on file 10/10/2023 Physically Abused Not on file 10/10/2023 Sexually Abused Not on file 10/10/2023 Overall Financial Resource Strain (CARDIA) Answe r Date Recorded How hard is it for you to pa y for the very basics like food, housing, medical care, and heating? Not hard at all 10/10/2023 Hunger Vital Sign Answer Date Recorded Within the past 12 months, y ou worried that your food would run out before you got the money to buy more. Never true 10/10/19 24 Ran Out of Food in the Last Year Not on file 10/10/2023 PRAPARE - Transportation Answer Date Re corded In the past 12 months, has l ack of transportation kept you from medical appointments or from getting medications? No 09/14 In the past 12 months, has l ack of transportation kept you from meetings, work, or from getting things needed for daily living? No 10/10/2023 Housing Stability Vital Sign Answer Hill e Recorded In the last 12 months, was t here a time when you were not able to pay the mortgage or rent on time? No 10/10/2023 Number of Times Moved in the Last Year Not on fi le 10/10/2023 At any time in the past 12 m [facility], were you homeless or living in a prison (including now)? No 10/10/2023 Food Insecurity Answer Date Recorded Within the past 12 months, y ou worried that your food would run out before you got the money to buy more. Never true 10/10/19 24 Ran Out of Food in the Last Year Not on file 10/10/2023 Intimate Partner Violence Answer Date R ecorded Emotionally Abused Not on file 10/10/2023 Within the last year, have y ou been afraid of your partner or ex-partner? No 10/10/2023 Physically Abused Not on file 10/10/2023 Sexually Abused Not on file 10/10/2023 Housing Stability Answer Date Recorded Unstable Housing in the Last Year Not on file 10/10/2023 In the last 12 months, was t here a time when you were not able to pay the mortgage or rent on time? No 10/10/2023 [address] of [address] Lived in the Last Year Not on f ile 10/10/2023 Comments No Sex and Gender Information Value Date Recorded Sex Assigned at Female 10/10/2023 5:15 AM EDT Legal Sex Female 5:12 AM EDT Gender Identity Female 10/10/2023 5:15 AM EDT Sexual Orientation Straight 10/13/2023 8: 54 AM EDT Last Filed Vital Signs Vital Sign Reading Time Taken Comments Blood Pressure 134/80 10/11/2023 11:00 AM EDT Pulse 72 10/11/2023 11:00 AM EDT Temperature 37.2 C (99 F) 10/11/2023 11:00 AM EDT Respiratory Rate 17 10/11/2023 11:0 0 AM EDT Oxygen Saturation 96% 10/11/2023 11: 00 AM EDT Inhaled Oxygen Concentration - - Weight 81.6 kg (179 lb 14.3 oz) 10/10/2023 4:07 PM EDT Height 157.5 cm (5' 2.01 ) 10/10/2023 4:07 PM ED T Body Mass Index 32.89 10/10/2023 4:07 PM EDT Plan of Treatment Health Maintenance Due Date Last Done Comments Lipid Panel 1968 Depression Screening 1972 Hepatitis C Screening 1986 DTaP,Tdap,and Td Vaccines (1 - Tdap) 08/29/1987 Breast Cancer Screening 2008 CT Colonography 2013 Colonoscopy 2013 Colorectal Cancer Screening 2013 FIT 2013 FOBT 2013 Multitarget Stool DNA (Cologuard) 2013 Sigmoidoscopy 2013 Pneumococcal Vaccine (1 of 1 - PCV) 2018 Zoster Vaccine (1 of 2) 2018 COVID-19 Vaccine (1 - 2023-2 5 season) 2023 Blood Pressure 10/10/2024 10/11/2023 Influenza Vaccine (#1) 2024 Meningococcal B Vaccines Aged Out No longer eligible based on patient's age to complete this topic Meningococcal Vaccines Aged Out No lo nger eligible based on patient's age to complete this topic Pneumococcal Vaccine: Pediat rics (0 to 5 Years) and At-Risk Patients (6 to 64 Years) Aged Out No longer eligi ble based on patient's age to complete this topic Medical Devices Implanted Type Area Mineralogy Professor Device Identifier Shelf Expiration Date Model / Serial / Lot Stent Contour 6x22 [id number]) - [id number] Implanted:Qty : 1 on 10/10/2023 by Ariana Kulkarni MD at [facility] Urological stents Left: Ureter [employer] (WD) 05/01/2026 [id number] 10 / / [id number] Insurance HEALTHCARE Advance Directives * Full Code (Latest Code Status on File) Date Activated Date Inactivated Comments 10/10/2023 3:44 PM Question Answer Comments Discussed with/per: Patient Care Teams Chemical Processing Laborer Relationship Specialty Start Date End Date Unknown, Provider, [address] [place] [id number] PCP - General 10/10/23
== END 2024-11-02 15:18 | disposition home or self-care (01) ==
LOC: HO.HGS 14:54
PROVIDERS: Visit Provider Surgery
DX: L72.0 Epidermal cyst (principal)
CPT/HCPCS: 11402

== ENCOUNTER 2024-11-02 14:53 | Outpatient (REF) | payer BC, SELFPAY | END 2024-11-02 14:54 | disposition home or self-care (01) | LOC: HO.LNP 14:53 | PROVIDERS: Visit Provider Surgery | DX: L72.0 Epidermal cyst (principal) | CPT/HCPCS: 11402; 88304 ==

== ENCOUNTER 2024-11-11 09:12 | Outpatient (AMB) | payer BC, SELFPAY ==
--- NOTE | 2024-11-11 09:16 | MHC.PC.OV ---
Vital Signs 11/11/24 09:19 11/11/24 09:47 Height 5 ft 3 in Weight 88.451 kg BMI 34.5 BP 136/96 H 126/80 Respiration 16 Pulse 88 Pulse Source Pulse Oximeter Temp 98.1 F Temp Source Temporal Artery Scan Pulse Oximetry (%) 99 Oxygen Delivery Method Room Air Intake Visit Reasons: Routine Rehabilitation Counsellor Required: No Accompanied by: Self / Same As Patient Allergies No Known Allergies Allergy (Verified 11/11/24 09:18) Tobacco use date assessed: 08/18/24 Dental Screening Dental Screen Date: 08/18/24 HPI HPI Comments History of Present Illness Details 54-year-old female with history of neuritis, hyperlipidemia, nephrolithiasis presenting to the office today for management of chronic conditions and to establish care. Neuritis-numbness tingling in the feet bilaterally has resolved with Cymbalta Nephrolithiasis-following with Urology, on vitamin B6 Hyperlipidemia-simvastatin 40 mg daily. Last LDL 115 GERD-on omeprazole 20 mg daily but questioning if she can discontinue this medication Concerns: Neuropathic pain in the scalp with pruritus followed by several lesions. No known history of herpes/shingles. No fevers, chills, drainage Memory concerns-reports some issues with cognition and remembering things short-term. Health maintenance: Last colonoscopy 05/2024 with 1 year follow-up advised, negative for malignancy Last screening colonoscopy 11/2022 with 5 year follow-up advised No ongoing Pap smears s/p hysterectomy ROS: General: No fevers, malaise, unintentional weight loss HEENT: No blurred vision, diplopia. No sore throat, nasal congestion, rhinorrhea, sinus pain, ear pain Cardiovascular: No chest pain, palpitations, or leg edema Respiratory: No shortness of breath, wheezing, cough GI: No abdominal pain, nausea, vomiting, diarrhea, constipation, melena, hematochezia : No dysuria, hematuria, increased urinary frequency, decreased urinary output MSK: No myalgia, back pain Neuro: No headaches, weakness, paresthesias. See HPI Skin: See HPI EXAM: Constitutional - Awake and Alert, No apparent distress Eyes - PERRL Cardiovascular - S1S2, RRR, No edema Respiratory - Normal lung expansion, Normal respiratory effort, No respiratory distress, CTA bilaterally Extremities - no calf tenderness bilaterally, no swelling Skin - Warm/Dry Neurological - Alert & oriented x3, CN II-XII in tact Psychological - Appropriate affect [facility] Medical History (Updated 11/11/24 @ 09:44 by MIKE Rivers) Hypertension Polyneuropathy Hypothyroidism Epidermal cyst Left knee sprain High cholesterol Chronic GERD Surgical History H/O cystoscopy Tubal ligation status H/O endoscopy H/O colonoscopy (~11/24/22) History of back surgery History of cholecystectomy H/O: hysterectomy H/O tooth extraction Family History Mother No problems noted. Father No problems noted. Social History Housing: Condominium Are you a primary point of care specialist to a significant other at home: No Do you presently have visiting nurse or other home services: No Patient Tobacco Use Status: Former Tobacco user Tobacco use type: Cigarette Years Smoked: 25 e-Cigarette/Vaping Use: Former Use service: No Current occupational status: employed Cognitive needs: No Hearing needs: No Vision needs: Yes (reading glasses) Questionnaire Thrive Questionnaire Date Thrive assessed: 08/18/24 JESSI-7 AMB Questionnaire JESSI-7 Date JESSI - 7 assessed: 08/18/24 Source: Developed by Drs. Amari Arambula, Adriana Yang, Juan Pablo Aldana and colleagues, with an educational yue from [employer]. Physical exam (Primary Care) Vital Signs: Last Vital Signs Temp 98.1 F 11/11/24 09:19 Pulse 88 11/11/24 09:19 Resp 16 11/11/24 09:19 BP 136/96 H 11/11/24 09:19 Pulse Ox 99 11/11/24 09:19 Oxygen Delivery Method Room Air 11/11/24 09:19 BMI result Body Mass Index 34.5 Tobacco/Smoking Status: Tobacco use Status Tobacco use date assessed 08/18/24 11/11/24 09:21 Patient Tobacco Use Status Former Tobacco user 11/11/24 09:21 Tobacco use type Cigarette 11/11/24 09:21 e-Cigarette/Vaping Use Former Use 11/11/24 09:21 Thrive Assessment: Date of Thrive Assessment Date Thrive assessed 08/18/24 11/11/24 09:21 Coding Level of Care Code New Pt Level 4 (99870) Complex EM visit Add On G2211 Diagnoses High cholesterol E78.00 Chronic GERD K21.9 Polyneuropathy G62.9 Kidney stone N20.0 Concern about memory R41.89 Assessment & Plan Assessment & Plan (1) High cholesterol: Code(s): E78.00 - Pure hypercholesterolemia, unspecified Category: Medical Plan: Reasonably controlled. Continue simvastatin. Diet low in saturated fats and highly processed foods (2) Chronic GERD: Code(s): K21.9 - Gastro-esophageal reflux disease without esophagitis Category: Medical Plan: Advised she can trial off of omeprazole. Recommend Pepcid or Tums as needed. If symptoms are often and recur, recommend resuming omeprazole. Avoid triggering foods (3) Polyneuropathy: Code(s): G62.9 - Polyneuropathy, unspecified Category: Medical Plan: Controlled. Continue Cymbalta (4) Kidney stone: Code(s): N20.0 - Calculus of kidney Category: Medical Plan: Continue following with Urology, vitamin B6 (5) Concern about memory: Code(s): R41.89 - Other symptoms and signs involving cognitive functions and awareness Category: Medical Plan: Advised to decrease dose of vitamin B12. Recommend memory exercises, given to patient to performed. Can evaluate further at next visit if symptoms persist Plan Follow-up in the office in 6 months with labs completed prior to visit Orders: Orders Basic Metabolic Panel 6 Months E78.00 - Pure hypercholesterolemia, unspecified, G62.9 - Polyneuropathy, unspecified, K21.9 - Gastro-esophageal reflux disease without esophagitis, N20.0 - Calculus of kidney, R41.89 - Other symptoms and signs involving cognitive functions and awareness Lipid Panel 6 Months E78.00 - Pure hypercholesterolemia, unspecified, G62.9 - Polyneuropathy, unspecified, K21.9 - Gastro-esophageal reflux disease without esophagitis, N20.0 - Calculus of kidney, R41.89 - Other symptoms and signs involving cognitive functions and awareness Vitamin B12 6 Months E78.00 - Pure hypercholesterolemia, unspecified, G62.9 - Polyneuropathy, unspecified, K21.9 - Gastro-esophageal reflux disease without esophagitis, N20.0 - Calculus of kidney, R41.89 - Other symptoms and signs involving cognitive functions and awareness Liver Panel 6 Months E78.00 - Pure hypercholesterolemia, unspecified, G62.9 - Polyneuropathy, unspecified, K21.9 - Gastro-esophageal reflux disease without esophagitis, N20.0 - Calculus of kidney, R41.89 - Other symptoms and signs involving cognitive functions and awareness
[2024-11-11 09:19] VITALS: BP 136/96; PULSE 88; RESP 16; TEMP 36.7; O2SAT 99; BMI 34.5
[2024-11-11 09:47] VITALS: BP 126/80
--- OUTSIDE RECORDS SUMMARY | 2024-11-11 10:02 | XMS_ITS | Patient Health Record ---
Author Organization [facility] Address [address] [place] [address] Care Team Providers Care Protector Plate Attacher Name Role Phone Juanito (RETIRED) Jakob GONZALEZ Primary Care Provide r Unavailable Amari Schmidt Unavailable [phone] Allergies No Known Allergies Reason For Referral [...] W/U Status Risk Notes Problem Esophageal reflux (799485058) Esophageal reflux (K21.9) Active confirmed Problem 836955199 Encounter for screening for malignant neoplasm of colon (Z12.11) Active confirmed Problem 908665246 History of adenomatous polyp of colon (Z86.010) Active confirmed Problem 810734991 Gastroesophageal reflux disease without esophagitis (K21.9) Active confirmed Problem History of polyp of colon (399893324) History of colon polyps (Z86.010) Active confirmed Problem 307481367 Family history o f colon cancer (Z80.0) Active confirmed Problem Bryan esophagus (310700860) 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 Problem Diverticulosis of colon (699257747) Diverticulosis of colon (K57.30) Active confirmed Problem 507708893 Bryan''s esophagus without dysplasia (K22.70) Active confirmed Problem 215270180 Serrated adenoma of colon (D12.6) Active confirmed Problem 613996132 Serrated polyp o f colon (K63.5) Active confirmed Plan Of Treatment Future Test Test Name Order Date UPPER GI ENDOSCOPY 09/30/2013 UPPER GI ENDOSCOPY 09/02/2018 COLONOSCOPY 09/02/2018 COLONOSCOPY 03/01/2019 UPPER GI ENDOSCOPY 08/27/2022 COLONOSCOPY 08/27/2022 Insurance Providers Payer Name Payer Address Payer Phone Subscriber Number Group Number Insured Name Patient Relationship to Insured Coverage Start Date Coverage End Date [facility] [address] [place] [address] [id number] EDWARD VAZQUEZ Self - patient is the insured Medical (General) History Medical History History ICD Code Colonoscopy 05-17-2007--hyperp lastic polyp, diverticulosis, and internal hemorrhoids Hyperlipidemia Bryan's esophagus and refl ux-- EGD in 12/2010-small HH and small area of Bryan's-no dysplasia Denies SC,DM,CVA,Lung disease,renal dise ase Diverticulitis in 2005 Fibroids [...] Cholecystectomy in [address] Mark Peralta [facility] Hysterectomy 12/2018
--- OUTSIDE RECORDS SUMMARY | 2024-11-11 10:02 | XMS_ITS | Clinical Summary ---
Author Organization Nurys Sánchez [facility] Address [address] [place] [address] Care Team Providers Care Mri Technician Name Role Phone Unknown, Provider MD Primary [...] drink = 0.6 oz pur e alcohol) [facility] Utilities Answer Date Recorded In the past [...] any time in the past 12 m [facility], were you homeless or living in a [facility]p (including now)? No 10/10/2023 Food Insecurity Answer [...] this topic Medical Devices Implanted Type Area Director Sanitation Bureau Device Identifier Shelf Expiration Date Model / Serial / Lot Stent Contour 6x22 [id number] ([id number]) - [id number] Implanted:Qty : 1 on 10/10/2023 by Ariana Kulkarni MD at [facility] Urological stents Left: Ureter [employer] (WD) 05/01/2026 [id number] 10 / / [id number] Insurance HEALTHCARE Advance Directives * Full Code (Latest Code Status on File) Date Activated Date Inactivated Comments 10/10/2023 3:44 PM Question Answer Comments Discussed with/per: Patient Care Teams Mri Technician Relationship Specialty Start Date End Date Unknown, Provider, [address] [place] [id number] PCP - General 10/10/23
== END 2024-11-11 09:51 | disposition home or self-care (01) ==
LOC: HO.HMCHD 09:13
PROVIDERS: PCP Internal Medicine; Visit Provider Physician Assistant
DX: E78.00 Pure hypercholesterolemia, unspecified (principal); K21.9 Gastro-esophageal reflux disease without esophagitis; G62.9 Polyneuropathy, unspecified; N20.0 Calculus of kidney; R41.89 Other symptoms and signs involving cognitive functions and awareness

== ENCOUNTER 2024-11-15 14:21 | Outpatient (AMB) | payer BC, SELFPAY ==
[2024-11-15 14:29] VITALS: BMI 34.5
--- NOTE | 2024-11-15 14:29 | MHC.OFFVIS ---
Vital Signs 11/15/24 14:29 Height 5 ft 3 in Weight 195 lb BMI 34.5 Intake Visit Reasons: OV- Discuss L SF DIP arthrodesis Intake Note: Marni is a 54 year old right hand dominant female who presents today for a follow up visit for her osteoarthritis of bilateral hands, worst in the DIP joint of the left small finger with severely limited range of motion. At her last visit, with Moe Morales PA-C, he advised to meet with Dr Ramesh for surgical consult and discussion of arthrodesis of left small finger DIP joint. Allergies No Known Allergies Allergy (Verified 11/15/24 14:30) HPI HPI OV- Discuss L SF DIP arthrodesis: Details: Marni is a 54 year old right hand dominant woman who presents to discuss her left small finger D IP joint arthritis She says she has had trouble with painful arthritis and limited ROM in all her digits bilaterally. She was most bothered by her left small finger DIP joint and says she had very limited ROM & function of this finger. However, she says her pain has improved quite a bit in the last few weeks and she feels she is doing better overall. She denies prior treatment options. She denies any numbness or tingling. She denies being seen by Rheumatology. She smokes Marijuana. 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 Father No problems noted. Social History Housing: Condominium Are you a primary healthcare manager to a significant other at home: No Do you presently have visiting nurse or other home services: No Patient Tobacco Use Status: Former Tobacco user Tobacco use type: Cigarette Years Smoked: 25 e-Cigarette/Vaping Use: Former Use service: No Current occupational status: employed Cognitive needs: No Hearing needs: No Vision needs: Yes (reading glasses) Review of Systems Const All systems reviewed & are unremarkable except as noted in HPI and below Physical Exam Vital Signs: BMI result Body Mass Index 34.5 Const General: cooperative, healthy appearing and no acute distress Orientation/consciousness: patient oriented x3 HEENT Head: Yes normocephalic and Yes atraumatic Eyes EOM: EOMs intact bilaterally Resp Effort & Inspection: normal respiratory effort and able to speak in complete sentences Cardio Jugular venous distension: no JVD Skin General skin exam: turgor normal Rashes: no rashes Neuro General: patient oriented x3 Extrem Other: Evaluation of Left Upper Extremity: The patient is alert, oriented, and in no acute distress Neuro: Median, Ulnar, Radial nerves motor and sensory intact and sensation is normal to the tips of all digits Vascular: Cap refill brisk ROM: She can fully extend all of her digits and bring them close to a fist bilaterally. Heberden's nodes noted in several of the digits of bilateral hands, including the left small finger D IP joint Fortunately, the left small finger D IP joint is not particularly tender today. She says it has really started feeling better over the last few weeks. The joint is stable. Skin: No lacerations or abrasions. General: No Ecchymosis. No Erythema or evidence of infection. Radiographs: 3 views of the left hand from 08/18/24 were reviewed by me today in clinic. They show severe arthritis in her small finger D IP joint, with near complete loss of the small finger DIP joint, also some arthritis changes in the ring finger DIP joint, and some early basal joint arthritis Psych Appearance: grossly normal Affect: normal affect Attitude: cooperative Assessment & Plan Assessment & Plan (1) Osteoarthritis of hands, bilateral: Code(s): M19.041 - Primary osteoarthritis, right hand; M19.042 - Primary osteoarthritis, left hand Category: Medical (2) Finger pain, left: Code(s): M79.645 - Pain in left finger(s) Category: Medical (3) Polyneuropathy: Code(s): G62.9 - Polyneuropathy, unspecified Category: Medical Plan Assessment & Plan: 1. Left small finger DIP joint arthritis This is her chief complaint today 2. Bilateral hand osteoarthritis I educated her about this condition I discussed operative and non-operative treatment options, including a possible DIP joint arthrodesis I explained the effects of smoking on wound/bone healing, and recommend they stop smoking prior to surgery & while healing. This includes vaping, Marijuana, and other Nicotine products including patches used to help quit. They expressed understanding. Her symptoms of pain have been improving with rest & activity modification. I am the recommending a left small finger D IP joint arthrodesis at this time as her symptoms are quite a bit better. In addition, she knows that we would want her to have stop smoking for about 3 months before performing an arthrodesis. I recommend she continue to modify her activities where possible, she should avoid any heavy or repetitive pinching, gripping, or lifting activities. She should work on gentle ROM exercises at home and avoid strengthening devices such as stress balls She can wear her finger splint when symptomatic If her symptoms increase in frequency or severity she can follow up to discuss treatment options Otherwise she can follow up prn Scribed for Tarsha Ramesh MD by Tim Brown, medical intern, on 11/15/24 at 2:45 PM, EST. Coding Level of Care Code Est Pt Level 4 (80758) Diagnoses Osteoarthritis of hands, bilateral M19.041; M19.042 Finger pain, left M79.645 Polyneuropathy G62.9
--- OUTSIDE RECORDS SUMMARY | 2024-11-15 15:34 | XMS_ITS | Clinical Summary ---
Author Organization Nurys Sánchez [facility] Address [address] [place] [address] Care Team Providers Care Icing Coater Name Role Phone Unknown, Provider MD Primary [...] drink = 0.6 oz pur e alcohol) [facility] Utilities Answer Date Recorded In the past [...] any time in the past [address] [facility], were you homeless or living in a residential (including now)? No 10/10/2023 Food Insecurity Answer [...] this topic Medical Devices Implanted Type Area Head Porter Baggage Device Identifier Shelf Expiration Date Model / Serial / Lot Stent Contour 6x22 [id number] ([id number]) - [id number] Implanted:Qty : 1 on 10/10/2023 by [place] [facility] Urological stents Left: Ureter [employer] (WD) 05/01/2026 [id number] 10 / / [id number] Insurance HEALTHCARE Advance Directives * Full Code (Latest Code Status on File) Date Activated Date Inactivated Comments 10/10/2023 3:44 PM Question Answer Comments Discussed with/per: Patient Care Teams Icing Coater Relationship Specialty Start Date End Date Unknown, Provider, [address] [place] [id number] PCP - General 10/10/23
== END 2024-11-15 15:03 | disposition home or self-care (01) ==
LOC: HO.HOS 14:22
PROVIDERS: PCP Internal Medicine; Visit Provider Orthopaedic Surgery
DX: M19.041 Primary osteoarthritis, right hand (principal); M19.042 Primary osteoarthritis, left hand; M79.645 Pain in left finger(s); G62.9 Polyneuropathy, unspecified
CPT/HCPCS: 99214

== ENCOUNTER 2024-11-16 09:42 | Outpatient (AMB) | payer BC, SELFPAY ==
--- NOTE | 2024-11-16 09:52 | A.OFFVIS_ITS ---
Vital Signs 11/16/24 09:56 Height 5 ft 3 in Weight 195 lb BMI 34.5 BP 135/72 Blood Pressure Location Rt brachial Position Sitting Pulse 88 Intake Visit Reasons: s/p sut rem Lt axilla~ cyst Intake Note: Patient here s/p cyst excision on left axilla. Patient c/o: sutures to be removed. Reports incision healing well. Denies bleeding, oozing. WLE: 11-02-2024 Board Certified Family Physician Required: No Accompanied by: Self / Same As Patient Allergies No Known Allergies Allergy (Verified 11/16/24 09:59) HPI HPI s/p sut rem Lt axilla~ cyst: Details: She underwent excision of a cyst from the left axilla under local anesthesia last 11/02/2024. She tolerated the procedure well. She currently denies significant complaints. [facility] Medical History Hypertension Polyneuropathy Hypothyroidism Epidermal cyst Left knee sprain High cholesterol Chronic GERD Surgical History H/O cystoscopy Tubal ligation status H/O endoscopy H/O colonoscopy (~11/24/22) History of back surgery History of cholecystectomy H/O: hysterectomy H/O tooth extraction Family History Mother No problems noted. Father No problems noted. Social History Housing: [facility] Are you a primary career information specialist to a significant other at home: No Do you presently have visiting nurse or other home services: No Patient Tobacco Use Status: Former Tobacco user Tobacco use type: Cigarette Years Smoked: 25 e-Cigarette/Vaping Use: Former Use service: No Current occupational status: employed Cognitive needs: No Hearing needs: No Vision needs: Yes (reading glasses) Review of Systems Const Denies chills and Denies fever(s) Physical Exam Const General: comfortable and no acute distress Skin Other: Excision site in the left axilla as well healed, not infected, sutures in place Assessment & Plan Assessment & Plan (1) Epidermal cyst: Code(s): L72.0 - Epidermal cyst Category: Medical Plan: Status post excision. The incision is well healed. I removed all her sutures. Her path report shows an epidermal inclusion cyst. She can follow up on a p.r.n. basis. Coding Level of Care Code Global (38243) Diagnoses Epidermal cyst L72.0
[2024-11-16 09:56] VITALS: BP 135/72; PULSE 88; BMI 34.5
--- OUTSIDE RECORDS SUMMARY | 2024-11-16 10:43 | XMS_ITS | Patient Health Record ---
Author Organization [facility] Address [address] [place] [address] Care Team Providers Care Supervisor [employer] Name Role Phone Juanito (RETIRED) Jakob GONZALEZ Primary Care Provide r Unavailable Amari Schmidt Unavailable [phone] Allergies No Known Allergies Reason For Referral [...] W/U Status Risk Notes Problem Esophageal reflux (605304401) Esophageal reflux (K21.9) Active confirmed Problem 001257514 Encounter for screening for malignant neoplasm of colon (Z12.11) Active confirmed Problem 768663734 History of adenomatous polyp of colon (Z86.010) Active confirmed Problem 208229826 Gastroesophageal reflux disease without esophagitis (K21.9) Active confirmed Problem History of polyp of colon (880517069) History of colon polyps (Z86.010) Active confirmed Problem 030779331 Family history o f colon cancer (Z80.0) Active confirmed Problem Bryan esophagus (948078365) 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 Problem Diverticulosis of colon (302902213) Diverticulosis of colon (K57.30) Active confirmed Problem 792778997 Bryan''s esophagus without dysplasia (K22.70) Active confirmed Problem 426368550 Serrated adenoma of colon (D12.6) Active confirmed Problem 376955729 Serrated polyp o f colon (K63.5) Active confirmed Plan Of Treatment Future Test Test Name Order Date UPPER GI ENDOSCOPY 09/30/2013 UPPER GI ENDOSCOPY 09/02/2018 COLONOSCOPY 09/02/2018 COLONOSCOPY 03/01/2019 UPPER GI ENDOSCOPY 08/27/2022 COLONOSCOPY 08/27/2022 Insurance Providers Payer Name Payer Address Payer Phone Subscriber Number Group Number Insured Name Patient Relationship to Insured Coverage Start Date Coverage End Date [facility] [address] [place] [address] [id number] EDWARD VAZQUEZ Self - patient is the [...] Cholecystectomy [place] [address] Mark Peralta [facility] Hysterectomy 12/2018
--- OUTSIDE RECORDS SUMMARY | 2024-11-16 10:43 | XMS_ITS | Clinical Summary ---
Author Organization [facility] Address [address] [place] [address] Care Team Providers Care Hand Marker Name Role Phone Unknown, Provider MD Primary [...] drink = 0.6 oz pur e alcohol) [facility] Utilities Answer Date Recorded In the [...] any time in the past 12 m [facility], were you homeless or living in a senior living (including now)? No 10/10/2023 Food Insecurity Answer [...] this topic Medical Devices Implanted Type [employer] Flat[employer] Truck [employer] Device Identifier Shelf Expiration Date Model / Serial / Lot Stent Contour [id number] [id number] ([id number]) - [id number] Implanted:Qty : 1 on 10/10/2023 by Ariana Kulkarni MD at [facility] Urological stents Left: [employer] (WD) 05/01/2026 [id number] 10 / / [id number] Insurance HEALTHCARE Advance Directives * Full Code (Latest Code Status on File) Date Activated Date Inactivated Comments 10/10/2023 3:44 PM Question Answer Comments Discussed with/per: Patient Care Teams Hand Marker Relationship Specialty Start Date End Date Unknown, Provider, [address] [place] [id number] PCP - General 10/10/23
== END 2024-11-16 10:00 | disposition home or self-care (01) ==
LOC: HO.HGS 09:43
PROVIDERS: PCP Internal Medicine; Visit Provider Surgery
DX: L72.0 Epidermal cyst (principal)
CPT/HCPCS: 99024